=== PATIENT | male | born 1960 | race Caucasian/White ===

== ENCOUNTER 2020-05-21 16:35 | Outpatient (REF) | payer BC, SELFPAY ==
[2020-05-21 19:30] LABS: Anion Gap 11.1 mmol/L (3-11); BUN 14 mg/dL (7-18); CO2 25.9 mmol/L (21.0-32.0); CREATININE 1.06 mg/dL (0.70-1.30); Calcium 9.3 mg/dL (8.5-10.1); Calculated LDL 160 mg/dL (<100); Chloride 102 mmol/L (98-107); Cholesterol 244 mg/dL (<200); Glucose 85 mg/dL (74-106); HDL Cholesterol 44 mg/dL (40-60); Sodium 139 mmol/L (136-145); Triglyceride 203 mg/dL (<150)
[2020-05-22 18:54] LABS: PSA, Screening 0.3 ng/mL (0.0-4.5)
== END 2020-05-21 16:55 ==
LOC: LBN 16:35
PROVIDERS: Nurse Practitioner Gerontology; PCP Emergency Medicine; Visit Provider Emergency Medicine
DX: R03.0 Elevated blood-pressure reading, without diagnosis of hypertension (principal); I10 Essential (primary) hypertension; N40.1 Benign prostatic hyperplasia with lower urinary tract symptoms; N13.8 Other obstructive and reflux uropathy
CPT/HCPCS: 80048; 80061; 84153

== ENCOUNTER 2020-11-06 01:55 | Outpatient (CLI) | payer BC, SELFPAY ==
[2020-11-07 17:31] LABS: COVID-19 RT-PCR UVMMC Result Negative (Negative)
== END 2020-11-06 01:56 | disposition home or self-care (01) ==
LOC: LBO 01:55
PROVIDERS: PCP Emergency Medicine; Visit Provider Emergency Medicine
DX: Z20.822 Contact with and (suspected) exposure to COVID-19 (principal)
CPT/HCPCS: U0003

== ENCOUNTER 2022-01-22 10:24 | Day surgery (SDC) | payer OTHER, SELFPAY ==
[2022-01-22] VITALS (7 sets, daily range): BP systolic 109–151; BP diastolic 71–103; PULSE 65–84; RESP 12–20; TEMP 36–36.2; TEMPC 36.6; O2SAT 96–100; BMI 28.3
[2022-01-22] MEDS: Lactated Ringers 1,000 ML 80 ML IV (11:00)
--- NOTE | 2022-01-22 11:20 | W.ANESPRE ---
General Info Date of Service Date Performed: 01/22/22 Height: 5 ft 9 in Weight: 87 kg Body Mass Index (BMI): 28.3 Surgical Procedure: Operation Date: 01/22/22 10:35 Proposed Procedure Side Surgeon p Mimi Dukes, Meds Allergies and Home Medications Allergies Allergy/AdvReac Type Severity Reaction Status Date / Time No Known Allergies Allergy Unverified 01/22/22 10:48 Home Medication Medication Instructions Recorded glucosamine sulfate 2KCl 1,000 mg 1,000 mg PO BID 01/08/22 tablet (Glucosamine Relief) multivitamin 1 tab PO DAILY 01/08/22 omega 5-xcw-hfw-fish oil 300 1 cap PO DAILY 01/08/22 mg-1,000 mg capsule (Fish Oil) Current Visit Medications: Current Medications Generic Name Dose Route Start Last Admin Trade Name Freq PRN Reason Stop Dose Admin Hyoscyamine Sulfate 0.125 mg 01/21/22 09:37 Hyoscyamine 0.125 Mg Sl/Oral/Chew SL DIRECTED PRN Ringer's Solution 1,000 mls @ 80 mls/hr 01/22/22 06:00 01/22/22 11:00 IV 02/20/22 23:59 80 mls/hr INFUSION JUDIE Administration IV Miscellaneous Supplies 1 each 01/22/22 06:00 Iv Access IV 02/20/22 23:59 DIRECTED JUDIE Ondansetron HCl 4 mg 01/21/22 09:37 Ondansetron 4 Mg/2 Ml Vial IVP Q4H PRN PRN Nausea / Vomiting Sodium Chloride 0 ml 01/22/22 06:00 Normal Saline Flush 10 Ml Syr IV 02/20/22 23:59 PRN PRN Sodium Chloride 0 ml 01/22/22 06:00 Normal Saline 10 Ml Vial IJ 02/20/22 23:59 DIRECTED PRN Sterile Water 0 ml 01/22/22 06:00 Water,Injection,Sterile 10 Ml Vial IJ 02/20/22 23:59 DIRECTED PRN PFSH Active Problems Active Problems: Problem Status Onset Code Screening for colon cancer Z12.11 Medical History Medical History Achilles tendinitis Actinic keratitis Ankle injury Anxiety BPH w urinary obs/LUTS Depressive disorder Elevated blood pressure reading Esophageal reflux History of leukemia 1968 Hyperlipidemia Medical History Comments:: Pt very anxious. felt light headed whenhaving IV Surgical History Surgical History Colonoscopy - IV Sedation 2010 2011 Tobacco Smoking/Tobacco Use Status: Never Passive smoking exposure: Yes Second hand exposure: Yes Alcohol Alcohol Intake: current Alcohol intake frequency: a few times a week Alcohol type: beer and wine Substance Use Substance use: Never Substance use type: does not use Vital Signs and Lab Results Vital Signs Most Recent Vital Signs in EMR: Most Recent Vital Signs Temp Pulse Resp BP Pulse Ox 36 C L 66 20 114/71 100 01/22/22 11:04 01/22/22 11:04 01/22/22 11:04 01/22/22 11:04 01/22/22 11:04 Lab Results Blood Type / Crossmatch: No Data to Display Complete Blood Count: No Data to Display Complete Metabolic Panel: No Data to Display Liver Function Panel: No Data to Display Coagulation Panel: No Data to Display Cardiac Panel: No Data to Display Arterial Blood Gas: No Data to Display Venous Blood Gas: No Data to Display Pancreas Panel: No Data to Display Thyroid Panel: No Data to Display Infectious Disease: No Data to Display Blood Cultures: No Data to Display Toxicology Panel: No Data to Display Anesthesia Assessment and Plan Anesthesia History Personal History: No History of Anesthesia Complications Family History: No Family History of Anesthesia Complications Exercise Tolerance Exercise Tolerance: Metabolic Equivalents>4 Pertinent Negatives Pertinent Negatives: No Symptoms of GERD, No Major Cardiovascular Symptoms or Complaints, No Major Pulmonary Symptoms or Complaints and No History of CVA/TIA Cardiac & Pulmonary Exam Cardiac Exam: Normal S1/S2 Heart Sounds Pulmonary Exam: Clear Bilateral Breath Sounds Implantable Cardiac Device Does patient have a Pacemaker or an ICD?: No Airway Exam Known Difficult Airway: No Mallampati Class: 1 Mouth Opening: Normal (> 3cm) Thyromental Distance: Greater than 3 cm Neck Range of Motion: Full ROM Neck Circumference: Normal Teeth Condition: Normal Dentition ASA Classification ASA Score: ASA 2 Emergency Case?: No NPO Status NPO Status: NPO Clears >2 hours, Solids >8 hours Anesthesia Plan Resuscitation Status: Full Code Anesthesia Technique: General Anesthesia Airway Planned: Natural Airway Monitors Used: Standard Monitors
[2022-01-22] MEDS: Endoscopic Tattoo 5 ML SYR IJ (11:43)
--- NOTE | 2022-01-22 11:47 | BOWEL_PTH ---
PATIENT: Shalom Ball LOC: [facility] U#:[id number] AGE/SX: 61/M ROOM: RE01/22/[address]: Merced Dukes : 1960 BED: DIS: 01/22/2022 SPEC #: [id number] RECD: 01/22/22 12:58 STATUS: SARAH REQ #: [id number] JUANJO: 01/22/22 11:[address]: Merced Dukes DEPT: Surgical Specimen RECD BY: Karley Ortiz ENTERED: 01/22/22 12:59 SP TYPE: Bowel OTHR DR: Nhi Theodore APRN Tissues: 1 - BIOPSY BOWEL Procedures: GROSS AND MICRO LEVEL 4 Comments: [id number]
--- NOTE | 2022-01-22 12:15 | W.ANESPOSTOP ---
Postoperative Evaluation Date, Time and Location Date Performed: 01/22/22 Time Performed: 12:16 Patient Location: Day Surgery Unit Vital Signs Most Recent Imported Vital Signs: Most Recent Vital Signs Temp Pulse Resp BP Pulse Ox 36 C L 67 16 151/97 H 100 01/22/22 11:04 01/22/22 11:27 01/22/22 11:27 01/22/22 11:27 01/22/22 11:18 Most Recent Manually Entered Vital Signs: Adult Blood Pressure: 109/80 Heart Rate: 80 Respirations: 12 Oxygen Saturation (%): 97 Temperature (C): 36.6 C Pain Score (0-10 Scale): 0 Pain Score Most Recent Pain Score: Most Recent Pain Score Pain Level 0 01/22/22 10:49 Assessment Mental Status: Awake (Alert & Oriented to Patient Baseline) Airway and Respiratory Function: Patent airway with normal (patient baseline) respiratory exam Cardiovascular Function: Hemodynamically Stable Hydration Status: Adequately Hydrated Nausea & Vomiting: No Nausea or Vomiting Pain: Pt. Denies Any Pain Peripheral Nerve Block: Patient did not receive a nerve block
--- NOTE | 2022-01-22 12:17 | PDOC.DSDIS_ITS ---
Discharge Plan Disposition Patient Disposition: HOME Condition: Good Discharge Details Reason For Visit: colon scope Attending Provider: Merced Dukes Primary Care Provider: Nhi Theodore Home Meds and New Rx's Prescriptions: No Action multivitamin Tablet 1 tab PO DAILY glucosamine sulfate 2KCl [Glucosamine Relief] 1,000 mg tablet 1,000 mg PO BID Rx Instructions: administer with meals omega 1-dnt-fce-fish oil [Fish Oil] 300-1,000 mg capsule 1 cap PO DAILY Discharge Instructions Additional Instructions: DSU Colonoscopy Post- Op Instructions Instructions for Everyone who is given Anesthes ia: For your safety, please do the following for the next twenty-four (24) hours: *Do Not operate a motor vehicle (car, truck, motorcycle, etc.) *Do Not drink alcoholic beverages or use any recreational drugs for the first 24 hours or while taking pain medications. The medications in your body may have a reaction that can be dangerous. *Do Not make any important decisions or sign any important papers. Findings: polyp x1 Follow up: -My office will send a letter in 2 to 3 weeks time detailing as to what type of polyp this was and when we want you to repeat the colonoscopy. 1. No lifting over 20 pounds or strenuous activity for the first 24 hours after your procedure. After 24 hours there are no restrictions on your activity but you may feel fatigued for a few days. 2. After you arrive home you may have a light meal and return to your normal diet as you can tolerate it without feeling sick to your stomach. 3. You may have a bloated, gaseous feeling in your belly (abdomen) after a colonoscopy. Passing gas and belching will help. Walking or lying down on your left side with your knees flexed may relieve the discomfort. Call the office at [phone] (Office) or [phone] (Hospital) right away if you notice any of the following: a.Vomiting of blood or ?coffee ground stools?. b.Rectal bleeding 1Tbsp, blood clots or continuous bleeding. c.Severe belly (abdominal) pain. d.A hard distended belly (abdomen) and an inability to pass gas. 4. Please don?t expect to have a normal BM (bowel movement) for 2-3 days after your procedure. 5. If there are questions regarding the findings of your procedure, please contact your doctor 6. If you are unable to contact your doctor with a problem, contact the hospital at [phone]. 7. Continue all your regular medications unless directed otherwise. I understand the above instructions and have no questions. Signature of Patient or Adult Escort Name of Responsible Adult Escort Signature of Nurse Date/Time Activity:: See above Diet:: As Tolerated Discharge Orders Discharge Orders: Discharge Order (Routine); Ordered 01/21/22 Ordered By: Merced Dukes DS: Diagnosis Discharge Diagnosis (1) Cecal polyp: Status: Acute
--- NOTE | 2022-01-22 12:19 | COLE_ITS ---
Colonoscopy Report Date of procedure: 01/22/22 Pre-op diagnosis general: CRC screening Post-op diagnosis procedure note: other (colon polyp) Surgeon: Merced Dukes Anesthesia Type: General:No Airway Estimated blood loss (mL): 1 Pathology: other Complications: None Disposition: same day Prep: Miralax/Dulcolax Retraction Time: 13 Procedure Description: After informed consent was obtained the patient was taken to the procedure room and placed in a left decubitous position. Monitors were applied and a time out was done. The patients name, date of , procedure, allergies to medications and metal in their body was reviewed. The patient was then sedated. Once sedat ed and comfortable a rectal exam was done. External exam was normal. Internal exam revealed a normal sphincter tone and no palpable masses. The scope was then introduced and retrofelexed. no internal hemorrhoids were identified. The scope was then advanced to the cecum w/out difficulty. The TI and appendiceal orifice were identified. The prep was BB PS 3 in all segments for a total of 9. The scope was then slowly retracted over 13 minutes back into the rectum. There was a 2 cm flat polyp in the cecum. This was identified under NBI. This area was tattooed partially just to elevate the mucosa. There is removed with multiple bites of a hot biopsy forcep. All specimen is retrieved and no bleeding is noted.. The scope was removed and the patient was woken up and taken back to Same day surgery in stable condition. The patient tolerated the procedure well and there were no immediate complications. Follow up: The patient should have a repeat CE, to be determined by pathologic findings, unless they develop changes in bowel habits or other new gastrointestinal complaints.
== END 2022-01-22 13:14 | disposition home or self-care (01) ==
PROVIDERS: Visit Provider Surgery
PROC: 0DJD8ZZ Inspection of Lower Intestinal Tract, Via Natural or Artificial Opening Endoscopic (ICD-10-PCS; CPT 45378; principal; 2022-01-22 10:30)
DX: Z12.11 Encounter for screening for malignant neoplasm of colon (principal); K63.5 Polyp of colon
CPT/HCPCS: 45384; 45381; 88305; J2250

== ENCOUNTER 2022-07-07 10:32 | Outpatient (CLI) | payer OTHER, SELFPAY ==
[2022-07-07 12:27] LABS: CREATININE 1.2 mg/dL (0.70-1.30); Estimated GFR 68.38 (mL/min/1.73m2)
== END 2022-07-07 10:33 | disposition home or self-care (01) ==
LOC: LOS 10:32
PROVIDERS: PCP Nurse Practitioner Family; Visit Provider Family Medicine
DX: I10 Essential (primary) hypertension (principal)
CPT/HCPCS: 36415; 82565

== ENCOUNTER 2022-07-16 11:44 | Outpatient (CLI) | payer OTHER, SELFPAY ==
--- NOTE | 2022-07-16 11:30 | RT.EKG_ITS ---
APPROVED REPORT Exam: Resting ECG Reason for Exam: irregular heart rate Patient Location: O HR:78 bpm ECG Measurements Heart Rate 78 AXIS ME 173 P 62 QRSd 104 QRS 10 QT 433 T 26 QTc 494 Conclusion Sinus rhythm...normal P axis, V-rate 50- 99 Ventricular bigeminy...bigeminy string>4 w/ V complexes Borderline low voltage, extremity leads...all extremity leads <0.6mV Borderline prolonged QT interval...QTc >475mS
== END 2022-07-16 11:45 | disposition home or self-care (01) ==
LOC: DI.CM 11:45
PROVIDERS: PCP Nurse Practitioner Family; Visit Provider Nurse Practitioner Family
DX: I49.9 Cardiac arrhythmia, unspecified (principal)
CPT/HCPCS: 93010

== ENCOUNTER 2023-02-25 18:49 | Outpatient (REF) | payer OTHER, SELFPAY ==
[2023-02-25 21:15] LABS: Calculated LDL 122 mg/dL (<100); Cholesterol 219 mg/dL (<200); HDL Cholesterol 37 mg/dL (40-60); Triglyceride 301 mg/dL (<150)
== END 2023-02-25 18:50 | disposition home or self-care (01) ==
LOC: LBN 18:49
PROVIDERS: PCP Nurse Practitioner Family; Visit Provider Nurse Practitioner Family
DX: E78.5 Hyperlipidemia, unspecified (principal)
CPT/HCPCS: 80061

== ENCOUNTER 2023-03-04 00:37 | Outpatient (CLI) | payer OTHER, SELFPAY ==
--- NOTE | 2023-03-04 09:46 | DI.RAD_ITS ---
Exam(s) XR ANKLE RT COMPLETE EXAM: XR ANKLE RT COMPLETE CLINICAL HISTORY: continued pain, INJURY, S99.893H. TECHNIQUE: 2D digital imaging was performed. Three views. COMPARISON: CR XR ANKLE LT COMPLETE from 03/04/2023 FINDINGS: BONES: No acute fracture is present. Chronic appearing bony densities are noted adjacent to the medi al malleolus likely related to old trauma. There are prominent calcaneal spurs. No bony destructive lesion is seen. JOINTS: The ankle mortise is normally aligned. No significant tibiotalar joint space narrowing. SOFT TISSUE: Normal. Vascular calcifications. IMPRESSION: heel spurs. No acute abnormality DATA REPOSITORY: RADIATION DOSE DELIVERED:
--- NOTE | 2023-03-04 09:46 | DI.RAD_ITS ---
Exam(s) XR FOOT LT COMPLETE EXAM: XR FOOT LT COMPLETE CLINICAL HISTORY: continued pain, INJURY, S99.072U. TECHNIQUE: 2D digital imaging was performed. Three views. COMPARISON: No exams were available for comparison FINDINGS: BONES: No acute fracture is present. No bony destructive lesion is seen. Prominent heel spurs. JOINTS: No dislocation present. Mild intertarsal degenerative changes. Minimal degenerative change s 1st MTP joint. No hallux valgus. SOFT TISSUE: Normal. IMPRESSION: Mild degenerative changes and heel spurs. No acute abnormality. DATA REPOSITORY: RADIATION DOSE DELIVERED:
--- NOTE | 2023-03-04 09:46 | DI.RAD_ITS ---
Exam(s) XR FOOT RT COMPLETE EXAM: XR FOOT RT COMPLETE CLINICAL HISTORY: continued PAIN, INJURY, S99.439A. TECHNIQUE: 2D digital imaging was performed. Three views. COMPARISON: CR XR FOOT LT COMPLETE from 03/04/2023 FINDINGS: BONES: No acute fracture is present. No bony destructive lesion is seen. Prominent heel spurs. JOINTS: No dislocation present. Mild degenerative changes of the 1st MTP joint. SOFT TISSUE: Normal. IMPRESSION: Mild degenerative changes and heel spurs. No acute abnormality. DATA REPOSITORY: RADIATION DOSE DELIVERED:
--- NOTE | 2023-03-04 09:46 | DI.RAD_ITS ---
Exam(s) XR ANKLE LT COMPLETE EXAM: XR ANKLE LT COMPLETE CLINICAL HISTORY: continued pain, INJURY, S99.132J TECHNIQUE: 2D digital imaging was performed. Three views. COMPARISON: No exams were available for comparison FINDINGS: BONES: No acute fracture is present. No bony destructive lesion is seen. Smoothly marginated bony de nsities noted beneath the medial malleolus with slight facet injury to old trauma. Prominent heel sp urs. JOINTS:The ankle mortise is normally aligned. Arm tibiotalar joint space is maintained. SOFT TISSUE: Vascular calcifications. IMPRESSION: Prominent heel spurs. No acute abnormality. DATA REPOSITORY: RADIATION DOSE DELIVERED:
== END 2023-03-04 00:57 ==
LOC: DI 00:37
PROVIDERS: PCP Nurse Practitioner Family; Visit Provider Nurse Practitioner Family
DX: S99.921A Unspecified injury of right foot, initial encounter (principal); M77.31 Calcaneal spur, right foot; M19.071 Primary osteoarthritis, right ankle and foot
CPT/HCPCS: 73610; 73630

== ENCOUNTER 2023-05-24 17:59 | Outpatient (REF) | payer OTHER, SELFPAY ==
[2023-05-24 21:50] LABS: COMMENT (LAB VIEW ONLY) 199.89 mg/dL; Microalb ug/mg Crea 9.9 ug/mg Cr
== END 2023-05-24 18:00 | disposition home or self-care (01) ==
LOC: LBN 17:59
PROVIDERS: PCP Nurse Practitioner Family; Visit Provider Nurse Practitioner Family
DX: I10 Essential (primary) hypertension (principal)
CPT/HCPCS: 82043; 82570

== ENCOUNTER 2023-07-05 02:29 | Outpatient (CLI) | payer OTHER, SELFPAY ==
[2023-07-05 13:21] LABS: ALT 28 U/L (16-63); AST 20 U/L (15-37); Albumin 4.2 g/dL (3.4-5.0); Alkaline Phosphatase 75 U/L (46-116); Anion Gap 8.3 mmol/L (3-11); BUN 18 mg/dL (7-18); Bilirubin, Total 1.7 mg/dL (0.2-1.0); CO2 27.7 mmol/L (21.0-32.0); CREATININE 1.2 mg/dL (0.70-1.30); Calcium 9.5 mg/dL (8.5-10.1); Calculated LDL 82 mg/dL (<100); Chloride 105 mmol/L (98-107); Cholesterol 150 mg/dL (<200); Estimated GFR 67.95 (mL/min/1.73m2); Glucose 97 mg/dL (74-106); HDL Cholesterol 50 mg/dL (40-60); Potassium 4.1 mmol/L (3.5-5.1); Sodium 141 mmol/L (136-145); Total Protein 7.9 g/dL (6.4-8.2); Triglyceride 91 mg/dL (<150)
== END 2023-07-05 02:30 | disposition home or self-care (01) ==
LOC: LOS 02:29
PROVIDERS: PCP Nurse Practitioner Family; Visit Provider Nurse Practitioner Family
DX: E78.5 Hyperlipidemia, unspecified (principal)
CPT/HCPCS: 36415; 80053; 80061

== ENCOUNTER 2023-10-04 04:35 | Outpatient (CLI) | payer OTHER, SELFPAY ==
[2023-10-04 11:05] LABS: ALT 29 U/L (16-63); AST 18 U/L (15-37); Albumin 3.9 g/dL (3.4-5.0); Alkaline Phosphatase 68 U/L (46-116); Anion Gap 10.4 mmol/L (3-11); BUN 17 mg/dL (7-18); Bilirubin, Total 1.5 mg/dL (0.2-1.0); CO2 25.6 mmol/L (21.0-32.0); CREATININE 1.1 mg/dL (0.70-1.30); Calcium 9.4 mg/dL (8.5-10.1); Calculated LDL 87 mg/dL (<100); Chloride 106 mmol/L (98-107); Cholesterol 157 mg/dL (<200); Estimated GFR 75.43 (mL/min/1.73m2); Glucose 98 mg/dL (74-106); HDL Cholesterol 49 mg/dL (40-60); Potassium 4.1 mmol/L (3.5-5.1); Sodium 142 mmol/L (136-145); Total Protein 7.4 g/dL (6.4-8.2); Triglyceride 107 mg/dL (<150)
== END 2023-10-04 04:36 | disposition home or self-care (01) ==
LOC: LOS 04:35
PROVIDERS: PCP Nurse Practitioner Family; Visit Provider Nurse Practitioner Family
DX: E78.5 Hyperlipidemia, unspecified (principal)
CPT/HCPCS: 36415; 80053; 80061

== ENCOUNTER 2024-08-21 15:17 | Outpatient (CLI) | payer OTHER, SELFPAY ==
--- NOTE | 2024-08-21 15:15 | RT.EKG_ITS ---
APPROVED REPORT Exam: Resting ECG Reason for Exam: Left arm pain and dyspnea with exertion Patient Location: O HR:78 bpm ECG Measurements Heart Rate 78 AXIS WY 185 P 44 QRSd 95 QRS 13 QT 398 T 83 QTc 454 Conclusion Sinus rhythm...normal P axis, V-rate 50- 99 Borderline T wave abnormalities...T/QRS ratio < 1/20 or flat T
== END 2024-08-21 15:18 | disposition home or self-care (01) ==
LOC: DI.CM 15:18
PROVIDERS: PCP Nurse Practitioner Family; Visit Provider Nurse Practitioner Family
DX: R06.09 Other forms of dyspnea (principal); M79.602 Pain in left arm
CPT/HCPCS: 93010

== ENCOUNTER 2024-08-27 04:56 | Inpatient (IN) | payer OTHER, SELFPAY ==
[2024-08-27] VITALS (128 sets, daily range): BP systolic 82–196; BP diastolic 51–112; PULSE 42–101; RESP 6–29; TEMP 36.8–37; O2SAT 94–100
--- NOTE | 2024-08-27 04:45 | RT.EKG_ITS ---
APPROVED REPORT Exam: Resting ECG Reason for Exam: chest pain Patient Location: E HR:87 bpm ECG Measurements Heart Rate 87 AXIS AL 196 P 65 QRSd 88 QRS 20 QT 399 T 92 QTc 476 Conclusion Sinus rhythm...normal P axis, V-rate 60- 99 Nonspecific repol abnormality, lateral leads...ST dep, T neg, I aVL V5 V6 appropriate intervals no ST segment or T wave abnormalities to suggest occlusive AL
[2024-08-27] MEDS: Normal Saline 1,000 ML 1000 ML IV (05:10)
[2024-08-27] MEDS: Aspirin 325 MG TAB PO (05:15)
--- NOTE | 2024-08-27 05:24 | ED.GENADUL_ITS ---
Discharge Plan Disposition Patient Disposition: Admit to [facility] Condition: Serious Discharge Details Clinical Impression: Acute non-ST elevation myocardial infarction (NSTEMI) Primary Care Provider: Logan Heard ED Provider: Christina Mario Home Meds and New Rx's Prescriptions: No Action multivitamin Tablet 1 tab PO DAILY glucosamine sulfate 2KCl [Glucosamine Relief] 1,000 mg tablet 1,000 mg PO BID Rx Instructions: administer with meals omega 6-yrx-ptr-fish oil [Fish Oil] 300-1,000 mg capsule 1 cap PO DAILY atorvastatin 20 mg tablet 20 mg PO QHS Qty: 90 4RF famotidine 20 mg tablet 20 mg PO QHS Qty: 90 4RF nitroglycerin 0.4 mg tablet, sublingual 0.4 mg sublingual Q5M PRN (Reason: chest pain) Qty: 14 0RF Rx Instructions: Take 1 tab at onset of symptoms, repeat every 5 minutes x 3 doses if chest pain persists losartan 25 mg tablet 25 mg PO DAILY Qty: 90 0RF HPI General Mode of arrival: ambulatory . Date/Time Provider Initiated Documentation: 08/27/24 04:57 . Limitations to Documentation: no limitations . Information obtained by: patient, family and old records reviewed (office visit 08/21/24) . HPI Narrative: 63yo M with hx HTN, HLD, presenting for chest pain and shortness of breath. For the past severeal weeks has noted dull substernal chest pressure radiating to his left arm with associated shortness of breath, occurring with exertion. Saw his PCP on 08/21 for this and has stress test scheduled for this morning at 0900. Today at around 0200 woke from sleep with the same sensation; dull, 4/10 chest pressure/tightness with some left arm pain and difficulty breathing. Also feels lightheaded. No palpitations or syncope. Has taking his morning blood pressure medications, otherwise has not taken anything at home for this. Currently reports the pain and difficulty breathing have resolved and are not currently present. No family history of early cardiac disease. He is otherwise in his usual state of health with no fevers, chills, rash, nausea, vomiting, abdominal pain, numbness, weakness, or other concerns. Related Data Home Medications ?Medication ?Instructions ?Recorded ?Confirmed glucosamine sulfate 2KCl 1,000 mg 1,000 mg PO BID 01/08/22 08/27/24 tablet (Glucosamine Relief) multivitamin 1 tab PO DAILY 01/08/22 08/27/24 omega 9-tbs-naf-fish oil 300 1 cap PO DAILY 01/08/22 08/27/24 mg-1,000 mg capsule (Fish Oil) atorvastatin 20 mg tablet 20 mg PO QHS #90 tabs 10/11/23 08/27/24 losartan 25 mg tablet 25 mg PO DAILY #90 tabs 05/07/24 08/27/24 famotidine 20 mg tablet 20 mg PO QHS #90 tabs 06/05/24 08/27/24 nitroglycerin 0.4 mg sublingual 0.4 mg sublingual Q5M PRN chest 08/21/24 08/27/24 tablet pain #14 tabs Previous Rx's ?Medication ?Instructions ?Recorded atorvastatin 20 mg tablet 20 mg PO QHS #90 tabs 10/11/23 losartan 25 mg tablet 25 mg PO DAILY #90 tabs 05/07/24 famotidine 20 mg tablet 20 mg PO QHS #90 tabs 06/05/24 nitroglycerin 0.4 mg sublingual 0.4 mg sublingual Q5M PRN chest 08/21/24 tablet pain #14 tabs Allergies Allergy/AdvReac Type Severity Reaction Status Date / Time lisinopril AdvReac Intermediate Other (See Verified 08/27/24 05:08 Comment) General Stated Complaint: Chest Pain MANSOOR: 2 Review of Systems Narrative: see HPI Exam Narrative Exam Narrative: General: Alert, in no acute distress. Head: Normocephalic, atraumatic Neck: Trachea midline, ?Neck supple. ENT: ?MMM.? Cardiac: ?RRR, no murmurs appreciated Resp: No respiratory distress. CTAB. Abd: ?Soft, non-distended, nontender : ?No suprapubic tenderness. Extremities: ?No deformities.? No peripheral edema. Neurologic: GCS 15. ? Moves all extremities freely against gravity Course Vital Signs Vital signs: Vital Signs Temperature 37.0 C 08/27/24 05:01 Pulse 82 08/27/24 05:01 Respiratory Rate 16 08/27/24 05:01 Blood Pressure 196/112 H 08/27/24 05:01 Pulse Oximetry 99 08/27/24 05:01 Temperature 37.0 C 08/27/24 05:01 Pulse 82 01/27/25 05:01 Respiratory Rate 17 08/27/24 05:06 Respiratory Effort Normal 08/27/24 05:06 Respiratory Depth Normal 08/27/24 05:06 Respiratory Pattern Normal 08/27/24 05:06 Blood Pressure 196/112 H 08/27/24 05:01 Pulse Oximetry 99 08/27/24 05:01 Oxygen Delivery Method Room Air 08/27/24 05:01 Oxygen Flow Rate 0 08/27/24 05:01 Pain Level 4 08/27/24 05:01 Medical Decision Making Pt arrived during partial meditech downtime; initial orders on paper 63yo M with hx HTN, HLD, presenting for chest pain and shortness of breath. For the past severeal weeks has noted dull substernal chest pressure radiating to his left arm with associated shortness of breath and lightheadedness, occurring with exertion; saw his PCP and has stress test scheduled for 0900 this morning. Woke at 0200 today with the same symptoms for which he now presents to the ED. By arrival pain and shortness of breath have resolved, does still feel somewhat lightheaded. Hypertensive on arrival SBP 190's, vital signs otherwise reassuring. EKG NSR, appropriate intervals, slight ST depressions V5 & V6, no ST segment or T wave abnormalities to suggest occlusive OK. Given 325 of ASA on arrival. Just after IV placed, patient became pale, increasingly lightheaded, and bradyed down to high 30's with BP 80's/50's. Remains alert with a pulse, denies chest pain during this; atropine brought to bedside and 1L IVFB started. Family at bedside report he often passes out with blood draws and patient confirms this; suspect vasovagal reaction. BP and HR rapidly improved to normal range within 2-3 minutes. Labs reviewed as below, CBC reassuring with no leukocytosis or anemia, CMP with no actionable abnormalities, Mg normal, lipase normal, BNP normal, initial troponin elevated at 275. CTA for dissection ordered and independently reviewed; no dissection on my view, radiology read below with no acute findings. Will give 600mg plavix and start heparin. On reassessment pt reports chest pain has returned. BP now 160's/90's; given one dose of SL nitro with complete resolution of chest pain. Repeat EKG with no significant changes. 1 hour troponin slightly uptrending at 293. Discussed with [facility] [place]. Medina; accepted under Dr. Osullivan pending bed availability anticipated later today. Advised starting metoprolol 12.5mg q6hr, keeping pt NPO. Discussed with [facility] hospitalist Dr. Walker; patient accepted to medicine service. He requested bridging orders be placed which was done. Awaiting transfer to the floor. Imaging Data Radiologic Study: Imaging: CT Scan Radiologist's impression: IMPRESSION: No acute findings to explain reported symptoms Lab Data Lab results reviewed: Yes I reviewed the patient's lab results. Labs: Laboratory Tests Range/Units 08/27/24 08/27/24 08/27/24 05:14 06:14 08:14 WBC (4.4-10.8) 10^3/uL 8.23 RBC (4.36-5.78) 10^6/uL 5.71 Hgb (13.5-17.5) g/dL 15.6 Hct (40.0-50.0) % 47.1 MCV (80-95) fL 83 MCH (27.0-33.0) pg 27.3 MCHC (32.0-36.0) % 33.1 RDW (11.8-14.1) % 13.2 Plt Count (130-400) 10^3/uL 202 MPV (8.0-11.0) fL 9.8 Immature Gran % % 0.1 Neutrophils % % 72.8 Lymphocytes % % 20.4 Monocytes % % 6.1 Eosinophils % % 0.2 Basophils % % 0.4 Nucleated RBC % (0.0-0.3) % 0.0 Absolute Neutrophils (1.2-6.7) 10^3/uL 5.99 Absolute Lymphocytes (1.2-3.4) 10^3/uL 1.68 Absolute Monocytes (0.1-0.8) 10^3/uL 0.50 Absolute Eosinophils (0.0-0.7) 10^3/uL 0.02 Absolute Basophils (0.0-0.2) 10^3/uL 0.03 Sodium (136-145) mmol/L 143 Potassium (3.5-5.1) mmol/L 3.5 Chloride (98-107) mmol/L 106 Carbon Dioxide (21.0-32.0) mmol/L 27.4 Anion Gap (3-11) mmol/L 9.6 BUN (7-18) mg/dL 10 Creatinine (0.70-1.30) mg/dL 1.1 Est GFR (CKD-EPI 2020) (mL/min/1.73m2) 74.96 Glucose (74-106) mg/dL 114 H Calcium (8.5-10.1) mg/dL 8.7 Magnesium (1.8-2.4) mg/dL 1.8 Total Bilirubin (0.2-1.0) mg/dL 0.84 AST (15-37) U/L 18 ALT (16-63) U/L 34 Alkaline Phosphatase (46-116) U/L 83 Troponin I (<or=76) ng/L 275 H* Cancelled Cancelled NT-Pro-B Natriuret Pep (<300) pg/mL 206 Total Protein (6.4-8.2) g/dL 7.4 Albumin (3.4-5.0) g/dL 3.9 Lipase (<78) U/L 41 Quality:[facility] Health Related Social Needs: No Data to Display Critical Care Time Critical Care Time Critical Care Time: Yes Total Critical Care Time: 32 Attestation: Due to a high probability of clinically significant, life threatening deterioration, the patient required my highest level of preparedness to intervene emergently and I personally spent this critical care time directly and personally managing the patient. This critical care time included obtaining a history; examining the patient; pulse oximetry; ordering and review of studies; arranging urgent treatment with development of a management plan; evaluation of patient's response to treatment; frequent reassessment; and, discussions with other providers. This critical care time was performed to assess and manage the high probability of imminent, life-threatening deterioration that could result in multi-organ failure. It was exclusive of separately billable procedures and treating other patients? PFSH All Active Problems (Updated 08/27/24 @ 06:57 by Christina Mario MD) Acute non-ST elevation myocardial infarction (NSTEMI) (Acute) Left arm pain (Acute) Dyspnea on exertion (Acute) Snoring (Acute) Hypertension (Chronic) Pain, joint, foot, right (Acute) Bilateral ankle joint pain (Acute) Ankle joint stiffness, bilateral (Acute) Hyperlipidemia (Acute) GERD without esophagitis (Acute) Rosacea (Acute) Leukemia (Chronic) remote Cecal polyp (Acute) 12/2021 serrated adenoma, due in 2026- Medical History History of leukemia 1968 Hyperlipidemia Esophageal reflux Depressive disorder Anxiety Achilles tendinitis Actinic keratitis BPH w urinary obs/LUTS Elevated blood pressure reading Ankle injury Surgical History History of colonoscopy (~12/2021) Colonoscopy - IV Sedation 2010 2011 Family History Mother Stroke Father , 53 Alcohol abuse Personal history of malignant neoplasm throat Brother , 57 Depression Stroke Hypertension Grandfather Stroke Grandmother Diabetes Son No problems noted. Son No problems noted. Social History (Updated 06/05/24 @ 10:12 by Radha Jackson) Smoking/Tobacco Use Status: Never Second Hand Exposure: Yes Smoking risk assessment performed?: Yes Alcohol Intake: current Alcohol Intake frequency: a few times a week Alcohol type: beer and wine Drug use: Never Substance use type: does not use Adopted: No Caregiver/Support person: Yes Household members: spouse Housing: house Number of Children: 2 number of grandchildren: 1 Communication Needs: None and Corrective Lenses Do you need help understanding health information?: Rarely Pets and animals: Yes Pets and animals: cat(s) Sexually active: Yes Do you think of yourself as: straight/heterosexual Current gender identity: male What is your relationship status?: How often do you talk on the phone with friends or family?: once per week How often do you get together with friends or relatives?: once per week How often do you attend worship or congregational services?: 1-3 times per year Do you belong to any clubs or organized social groups?: no Panel score (0-1 are the most socially isolated patients): 1 Valery/Moravian: Bahai Special valery needs: No Agree to transfusion: Yes Seatbelt use: always Helmet use: Yes Helmet use: always 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
--- NOTE | 2024-08-27 05:30 | DI.CT_ITS ---
Exam(s) CT THORAX ABD/PEL CTA EXAM: CT THORAX ABD/PEL CTA CLINICAL HISTORY: chest pain eval aortic dissection. TECHNIQUE: Imaging Protocol: Axial CT angiography was performed with multi-slice acquisition and m ulti-planar and/or 3D reconstructions. Lung Computer Aided Detection (CAD) was utilized. CONTRAST MATERIAL: Intravenous: Omnipaque 350 contrast volume:100 mL Oral: No COMPARISON: CT ABD PELVIS WITH CONTRAST from 02/25/2015 FINDINGS: CHEST: Tracheobronchial tree: Patent where visualized. There is no evidence of bronchiectasis. Pulmonary parenchyma: No consolidation or dominant measurable mass. No architectural distortion. Pulmonary Arteries: There is no evidence of a pulmonary embolism. Mediastinum and Regla: No dominant adenopathy or fluid collection. The esophagus is unremarkable. Visualized thyroid: Unremarkable. Pleura: No effusion or pneumothorax. Heart: The heart is not dilated. Coronary artery calcification is present. No pericardial effusion. Aorta: Thoracic aorta non-dilated. No evidence of aneurysm or dissection. Soft Tissues: Unremarkable. Bones: Within normal limits for the patient's age. ABDOMEN AND PELVIS: Abdomen: Celiac axis/mesenteric arteries: No evidence of occlusion or significant stenosis. Renal Arteries: No evidence of occlusion or significant stenosis. Aorta: No evidence of occlusion or significant stenosis. No aneurysm or dissection. Atheroscleroti c calcification is present. Pelvis: Iliac Arteries: No evidence of occlusion or significant stenosis. Atherosclerotic calcification is present. Common Femoral Arteries: No evidence of occlusion or significant stenosis. Atherosclerotic calcific ation is present. ABDOMEN: Liver: Normal density. No measurable mass. Portal, superior mesenteric and splenic veins: Gallbladder and Biliary Tract: No radiodense calculus or dilation. Pancreas: Normal density, no abnormal calcifications or inflammatory process. Spleen: Normal. Adrenals: No masses seen. Kidneys: Normal size, contour and axis. No radiodense stones or obstructive uropathy. There is a simp le cyst in the superior pole of the left kidney. It measures 1.2 cm. There are several tiny hypoden sities in the kidneys bilaterally which are too small for further characterization but likely reflect small cysts. No follow-up is recommended. Bowel: No obstruction or bowel wall thickening. Appendix is unremarkable. Peritoneal Cavity: No ascites, collection or mesenteric inflammatory response. No free air. Lymph Nodes: Within normal limits. Bones: Within normal limits for the patient's age. Soft Tissues: Unremarkable. PELVIS: Bladder: Symmetric distention, no gross wall thickening. Reproductive Organs: The prostate gland is mildly enlarged. Lymph Nodes: Within normal limits. Bones: Within normal limits for the patient's age. IMPRESSION: 1. No evidence of aneurysm or dissection is seen on the CT angiography of the chest, abdomen or pelvi s. 2. No acute abdominal or pelvic process. 3. No acute pulmonary process. RADIATION DOSE DELIVERED: 832.28mGy.cm Total DLP DATA REPOSITORY: All CT scans at this facility are submitted to the National Radiology Data Registry (NRDR) Dose Index Registry (DIR) with the [employer] (ACR). RADIATION OPTIMIZATION: All CT scans at this facility use at least one of these dose optimization te chniques: automated exposure control; mA and/or kV adjustment per patient size (includes targeted exa ms where dose is matched to clinical indication); or iterative reconstruction.
--- NOTE | 2024-08-27 05:32 | NUR.NOTE ---
0506: While this RN was initiating the L AC PIV pt became very anxious, the subsequently pale and diaphoretic. This RN dropped his HOB flat and observed that he had HR drop into a sinus bradycardia w/ lowest observed HR of 37bpm and hypotensive w/ SBP <85mmHg. MD Mario at bedside and aware. Condition resolved spontaneously within ~7minutes
[2024-08-27] MEDS: Omnipaque 350 MG/ML 100 ML BTL IJ (05:54)
[2024-08-27] MEDS: Normal Saline - Diluent 50 ML VIAL IJ (05:54)
[2024-08-27 05:56] LABS: ALT 34 U/L (16-63); AST 18 U/L (15-37); Abs Immature Grans 0.01 10^3/uL (0.0-0.06); Absolute Basophil Count 0.03 10^3/uL (0.0-0.2); Absolute Eosinophil Count 0.02 10^3/uL (0.0-0.7); Absolute Lymphocyte Count 1.68 10^3/uL (1.2-3.4); Absolute Neutrophil Count 5.99 10^3/uL (1.2-6.7); Albumin 3.9 g/dL (3.4-5.0); Alkaline Phosphatase 83 U/L (46-116); Anion Gap 9.6 mmol/L (3-11); BUN 10 mg/dL (7-18); Basophils % 0.4 %; Bilirubin, Total 0.84 mg/dL (0.2-1.0); CO2 27.4 mmol/L (21.0-32.0); CREATININE 1.1 mg/dL (0.70-1.30); Calcium 8.7 mg/dL (8.5-10.1); Chloride 106 mmol/L (98-107); Eosinophils % 0.2 %; Estimated GFR 74.96 (mL/min/1.73m2); Glucose 114 mg/dL (74-106); HCT 47.1 % (40.0-50.0); HGB 15.6 g/dL (13.5-17.5); Immature Grans % 0.1 %; Lymphocytes % 20.4 %; MCH 27.3 pg (27.0-33.0); MCHC 33.1 % (32.0-36.0); MCV 83 fL (80-95); MPV 9.8 fL (8.0-11.0); Magnesium 1.8 mg/dL (1.8-2.4); Monocytes % 6.1 %; NT-proBNP 206 pg/mL (<300); Neutrophils % 72.8 %; Platelet Count 202 10^3/uL (130-400); Potassium 3.5 mmol/L (3.5-5.1); RBC 5.71 10^6/uL (4.36-5.78); RDW 13.2 % (11.8-14.1); RDW-SD 39.1 fL; Sodium 143 mmol/L (136-145); Total Protein 7.4 g/dL (6.4-8.2); WBC 8.23 10^3/uL (4.4-10.8)
[2024-08-27 05:59] LABS: Troponin I 275 ng/L (<or=76)
[2024-08-27] MEDS: nitroGLYcerin 0.4 MG TAB SL (06:07)
[2024-08-27 06:12] LABS: Lipase 41 U/L (<78)
--- NOTE | 2024-08-27 06:15 | RT.EKG_ITS ---
APPROVED REPORT Exam: Resting ECG Reason for Exam: chest pain Patient Location: E HR:71 bpm ECG Measurements Heart Rate 71 AXIS AR 181 P 56 QRSd 89 QRS 11 QT 439 T 97 QTc 477 Conclusion Sinus rhythm...normal P axis, V-rate 60- 99 Nonspecific T abnormalities, lateral leads...T <-0.10mV, I aVL V5 V6 no ST segment or T wave abnormalities to suggest occlusive PA
--- NOTE | 2024-08-27 06:16 | DI.VRAD_ITS ---
PROCEDURE INFORMATION: Exam: CTA Chest With Contrast CTA Abdomen and Pelvis With Contrast Exam date and time: 08/27/2024 5:44 AM Age: 63 years old Clinical indication: Chest pressure; Other: Chest pain eval aortic dissection TECHNIQUE: Imaging protocol: Computed tomographic angiography of the chest with contrast. Exam focused on the arteries. Computed tomographic angiography of the abdomen and pelvis with contrast. Exam focused on the arteries. 3D rendering (Not supervised by radiologist): MIP and/or 3D reconstructed images were created by the technologist. Contrast material: OMNIPAQUE 350; Contrast volume: 100 ml; Contrast route: INTRAVENOUS (IV); COMPARISON: No relevant prior studies available. FINDINGS: Limitations: Mild motion artifact. VASCULATURE: Pulmonary arteries: No pulmonary embolus is appreciated. Aorta: No aortic aneurysm or dissection seen. Atherosclerotic changes in the aorta and its branches. Celiac trunk and mesenteric arteries: No occlusion or significant stenosis. Renal arteries: No occlusion or significant stenosis. Right iliac arteries: No occlusion or significant stenosis. Left iliac arteries: No occlusion or significant stenosis. CHEST: Lungs: Dependent changes are present in the lungs. Pleural spaces: No pleural effusion. Heart: No pericardial effusion. ABDOMEN AND PELVIS: Liver: No focal hepatic lesion seen. Gallbladder and biliary ducts: No gallbladder calculi seen. Pancreas: No evidence for acute pancreatitis. Spleen: No splenomegaly. Adrenal glands: Unremarkable. No mass. Kidneys and ureters: No hydronephrosis. Right renal cyst. Stomach and bowel: No evidence for intestinal obstruction or perforation. Appendix: No evidence of appendicitis. Intraperitoneal space: No free air. Urinary bladder: No wall thickening. Reproductive: Enlarged prostate with calcifications. Lymph nodes: Nonspecific mesenteric lymph nodes. Bones/joints: No acute fracture. Soft tissues: Unremarkable. IMPRESSION: No acute findings to explain reported symptoms. Dictated and Authenticated by: Joanne Power MD. Ordering:NAVYA Vasquez MD
[2024-08-27] MEDS: Clopidogrel 300 MG TAB 600 MG PO (06:22)
[2024-08-27] MEDS: Heparin in 0.45% NaCl 25,000 UNIT/250 ML BAG 10 UNIT IVINF (06:25)
[2024-08-27 06:36] LABS: Troponin I 293 ng/L (<or=76)
[2024-08-27] MEDS: Metoprolol 12.5 MG TAB PO (06:59)
[2024-08-27 07:11] LABS: PTT Activated 25.5 sec (20.6-30.2); Prothrombin Time 10.4 sec (9.1-11.1)
--- NOTE | 2024-08-27 08:15 | W.PC.ACHO ---
Registration Status: Primary Language: Preferred Language: ED Information & Data Chief Complaint Chest Pain 08/27/24 05:28 Triage Note Pt presents to ER from home 08/27/24 05:01 via POV, ambulatory, with c/ o being woke up with CP at 0230 this morning with mild SOB; reports 710 at that time with radiation to the left shoulder; he says 4/10 with discomfort to left shoulder still; mid-sternal in nature, described as a pressure; denies SOB/N/V or diaphoresis at this time; reports that he is suppose to have a stress test here today. Medical / Surgical History (Last Reviewed 06/05/24 @ 08:57 by Logan Tam NP) History of leukemia Hyperlipidemia Esophageal reflux Depressive disorder Anxiety Achilles tendinitis Actinic keratitis BPH w urinary obs/LUTS Elevated blood pressure reading Ankle injury (Last Reviewed 06/05/24 @ 08:57 by Logan Tam NP) History of colonoscopy (~12/2021) Colonoscopy - IV Sedation Most Recent Vital Signs Temperature 37.0 C 08/27/24 05:01 Pulse 69 08/27/24 06:31 Pulse 70 08/27/24 06:31 Respiratory Rate 14 08/27/24 06:31 Respiratory Effort Normal 08/27/24 05:06 Respiratory Depth Normal 08/27/24 05:06 Respiratory Pattern Normal 08/27/24 05:06 Blood Pressure 137/81 08/27/24 06:31 Blood Pressure Mean 100 08/27/24 06:31 Pulse Oximetry 99 08/27/24 06:31 Oxygen Delivery Method Room Air 08/27/24 05:33 Oxygen Flow Rate 0 08/27/24 05:33 Pain Level 7 08/27/24 06:07 Allergies lisinopril Adverse Reaction (Intermediate, Verified 08/27/24 05:08) Other (See Comment) cough Precautions Isolation Standard precaution 08/27/24 05:06 Active Medications Generic Name Dose Route Start Last Admin Trade Name Freq PRN Reason Stop Dose Admin Heparin Sodium/Sodium Chloride 25,000 unit in 250 mls @ 0 mls/hr 08/27/24 06:00 08/27/24 06:25 IVINF 10 mls/hr INFUSION JUDIE 10 mls/hr Administration Protocol Per Protocol Iohexol 100 ml 08/27/24 06:00 08/27/24 05:54 Omnipaque 350 Mg/Ml 100 Ml Btl IJ 09/26/24 23:59 100 ml DIRECTED JUDIE Administration Sodium Chloride 50 ml 08/27/24 06:00 08/27/24 05:54 Normal Saline - Diluent 50 Ml Vial IJ 50 ml .FOR DI USE JUDIE Administration IV IV Catheter Type [Left Hand] Peripheral IV IV Catheter Type [Right Saline Lock Antecubital] IV Catheter Gauge [Left Hand] 18 IV Catheter Gauge [Right 18 Antecubital] Diet Orders Category Date Time Status Nothing Per Oral [DIET] Nutrition 08/27/24 Breakfast Active Diagnostics 08/27/24 08/27/24 08/27/24 Range/Units 08:14 08:07 06:14 WBC (4.4-10.8) 10^3/uL RBC (4.36-5.78) 10^6/uL Hgb (13.5-17.5) g/dL Hct (40.0-50.0) % MCV (80-95) fL MCH (27.0-33.0) pg MCHC (32.0-36.0) % RDW (11.8-14.1) % Plt Count (130-400) 10^3/uL MPV (8.0-11.0) fL Immature Gran % % Neutrophils % % Lymphocytes % % Monocytes % % Eosinophils % % Basophils % % Nucleated RBC % (0.0-0.3) % Absolute Neutrophils (1.2-6.7) 10^3/uL Absolute Lymphocytes (1.2-3.4) 10^3/uL Absolute Monocytes (0.1-0.8) 10^3/uL Absolute Eosinophils (0.0-0.7) 10^3/uL Absolute Basophils (0.0-0.2) 10^3/uL PT (9.1-11.1) sec INR (0.9-1.1) APTT (20.6-30.2) sec Sodium (136-145) mmol/L Potassium (3.5-5.1) mmol/L Chloride (98-107) mmol/L Carbon Dioxide (21.0-32.0) mmol/L Anion Gap (3-11) mmol/L BUN (7-18) mg/dL Creatinine (0.70-1.30) mg/dL Est GFR (CKD-EPI 2020) (mL/min/1.73m2) Glucose (74-106) mg/dL Calcium (8.5-10.1) mg/dL Magnesium (1.8-2.4) mg/dL Total Bilirubin (0.2-1.0) mg/dL AST (15-37) U/L ALT (16-63) U/L Alkaline Phosphatase (46-116) U/L Troponin I Cancelled Pending Cancelled (<or=76) ng/L NT-Pro-B Natriuret Pep (<300) pg/mL Total Protein (6.4-8.2) g/dL Albumin (3.4-5.0) g/dL Lipase (<78) U/L 08/27/24 08/27/24 Range/Units 06:10 05:14 WBC 8.23 (4.4-10.8) 10^3/uL RBC 5.71 (4.36-5.78) 10^6/uL Hgb 15.6 (13.5-17.5) g/dL Hct 47.1 (40.0-50.0) % MCV 83 (80-95) fL MCH 27.3 (27.0-33.0) pg MCHC 33.1 (32.0-36.0) % RDW 13.2 (11.8-14.1) % Plt Count 202 (130-400) 10^3/uL MPV 9.8 (8.0-11.0) fL Immature Gran % 0.1 % Neutrophils % 72.8 % Lymphocytes % 20.4 % Monocytes % 6.1 % Eosinophils % 0.2 % Basophils % 0.4 % Nucleated RBC % 0.0 (0.0-0.3) % Absolute Neutrophils 5.99 (1.2-6.7) 10^3/uL Absolute Lymphocytes 1.68 (1.2-3.4) 10^3/uL Absolute Monocytes 0.50 (0.1-0.8) 10^3/uL Absolute Eosinophils 0.02 (0.0-0.7) 10^3/uL Absolute Basophils 0.03 (0.0-0.2) 10^3/uL PT 10.4 (9.1-11.1) sec INR 1.0 (0.9-1.1) APTT 25.5 (20.6-30.2) sec Sodium 143 (136-145) mmol/L Potassium 3.5 (3.5-5.1) mmol/L Chloride 106 (98-107) mmol/L Carbon Dioxide 27.4 (21.0-32.0) mmol/L Anion Gap 9.6 (3-11) mmol/L BUN 10 (7-18) mg/dL Creatinine 1.1 (0.70-1.30) mg/dL Est GFR (CKD-EPI 2020) 74.96 (mL/min/1.73m2) Glucose 114 H (74-106) mg/dL Calcium 8.7 (8.5-10.1) mg/dL Magnesium 1.8 (1.8-2.4) mg/dL Total Bilirubin 0.84 (0.2-1.0) mg/dL AST 18 (15-37) U/L ALT 34 (16-63) U/L Alkaline Phosphatase 83 (46-116) U/L Troponin I 293 H* 275 H* (<or=76) ng/L NT-Pro-B Natriuret Pep 206 (<300) pg/mL Total Protein 7.4 (6.4-8.2) g/dL Albumin 3.9 (3.4-5.0) g/dL Lipase 41 (<78) U/L Intake and Output - 24 Hour Total 08/27/24 04:56 thru 08/27/24 08:09 Intake Total 1000 Output Total 500 Balance 500 Weight 89.358 kg Intake: IV 1000 Output: Urine 500 Falls Risk Assessment History of Falls No History 08/27/24 05:06 Contributing Factors No Factors 08/27/24 05:06 Ambulatory Aids Independent 08/27/24 05:06 Tubes/Lines None 08/27/24 05:06 Gait Evaluation No gait disturbance 08/27/24 05:06 Cognition No cognitive impairment 08/27/24 05:06 Fall Total Score 0 08/27/24 05:06 Level of Risk Standard/Low Risk 08/27/24 05:06 Notes 08/27/24 05:32 Nursing Notes by Tala Stoll 1813: While this RN was initiating the L AC PIV pt became very anxious, the subsequently pale and diaphoretic. This RN dropped his HOB flat and observed that he had HR drop into a sinus bradycardia w/ lowest observed HR of 37bpm and hypotensive w/ SBP <85mmHg. MD Mario at bedside and aware. Condition resolved spontaneously within ~7minutes Initialized on 08/27/24 05:32 - END OF NOTE v v v v v v v v v Sending and/or Receiving Nurses: Please use comment section below to note any information pertinent to the patient hand-off not included above. Information / Comments: Report received from:Rizwana Johnson RN
--- NOTE | 2024-08-27 08:43 | PDOC.CMIN ---
Date of service: 08/27/24 Time of Service: 08:43 Care Management Initial Assmt Initial Assessment Reason for Hospitalization: NSTEMI Functional Status/Living Situation Town of Residence: [place] Employment Status: Employed ([employer]) Medications Medication Management: No Issues/Barriers identified Advance Directives Advance Directives: Do you have an Advance Directive: Y 01/15/22 10:51 AD On File at [facility]: Y 01/15/22 10:51 Date Asked 01/15/22 08/27/24 08:24 AD Date Reviewed 08/27/24 08/27/24 08:24 COLST On File at [facility] COLST Date Scanned Code Status Resuscitation Status Full Code Insurance Coverage/Financial Issues Insurance: [employer] ([facility] only) Care Team Visit Care Team Role Provider Type Logan Tam NP Primary Care Provider NURSE PRACTITIONER Christina Mario MD Emergency Provider [facility] STAFF PHYSICIAN Dontae Walker MD Admit Provider [facility] STAFF PHYSICIAN Attending Provider Discharge Potential Discharge Needs: PCP F/U Appt Anticipated Barriers to Discharge: None Identified Patient/Family Education Needs: Review discharge instructions, discuss Ask Me Three Transportation: Private vehicle Plan: Oscar has been accepted for transfer to [facility] on Dr. Osullivan's service. He is currently awaiting bed availability. Oscar will transport via EMS coordinated by the nursing tapper supervisor and will follow up with the facility's providers and plan of care. CM will follow and continue to assess for discharge needs. Social Determinants of Health Screening Will the Patient Participate in the Screening?: Declined to provide PFSH All Active Problems (Updated 08/27/24 @ 06:57 by Christina Mario MD) Acute non-ST elevation myocardial infarction (NSTEMI) (Acute) Left arm pain (Acute) Dyspnea on exertion (Acute) Snoring (Acute) Hypertension (Chronic) Pain, joint, foot, right (Acute) Bilateral ankle joint pain (Acute) Ankle joint stiffness, bilateral (Acute) Hyperlipidemia (Acute) GERD without esophagitis (Acute) Rosacea (Acute) Leukemia (Chronic) remote Cecal polyp (Acute) 12/2021 serrated adenoma, due in 2026- Medical History History of leukemia 1968 Hyperlipidemia Esophageal reflux Depressive disorder Anxiety Achilles tendinitis Actinic keratitis BPH w urinary obs/LUTS Elevated blood pressure reading Ankle injury Surgical History History of colonoscopy (~12/2021) Colonoscopy - IV Sedation 2010 2011 Family History Mother Stroke Father , 53 Alcohol abuse Personal history of malignant neoplasm throat Brother , 57 Depression Stroke Hypertension Grandfather Stroke Grandmother Diabetes Son No problems noted. Son No problems noted. Social History (Updated 06/05/24 @ 10:12 by Radha Jackson) Smoking/Tobacco Use Status: Never Second Hand Exposure: Yes Smoking risk assessment performed?: Yes Alcohol Intake: current Alcohol Intake frequency: a few times a week Alcohol type: beer and wine Drug use: Never Substance use type: does not use Adopted: No Caregiver/Support person: Yes Household members: spouse Housing: house Number of Children: 2 number of grandchildren: 1 Communication Needs: None and Corrective Lenses Do you need help understanding health information?: Rarely Pets and animals: Yes Pets and animals: cat(s) Sexually active: Yes Do you think of yourself as: straight/heterosexual Current gender identity: male What is your relationship status?: How often do you talk on the phone with friends or family?: once per week How often do you get together with friends or relatives?: once per week How often do you attend buddhism or gnosticist services?: 1-3 times per year Do you belong to any clubs or organized social groups?: no Panel score (0-1 are the most socially isolated patients): 1 Valery/Pentecostal: Yarsanism Special valery needs: No Agree to transfusion: Yes Seatbelt use: always Helmet use: Yes Helmet use: always Drive intox or ride w/intox 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
[2024-08-27 08:58] LABS: Troponin I 756 ng/L (<or=76)
[2024-08-27] MEDS: Multivitamin TAB 1 TAB PO (09:35)
[2024-08-27] MEDS: Glucosamine 500 MG CAP 1000 MG PO ×2 (09:35→19:29)
[2024-08-27] MEDS: Omega-3 Fatty Acids 1000 MG CAP PO (09:35)
[2024-08-27] MEDS: Losartan 25 MG TAB PO (09:35)
[2024-08-27] MEDS: Normal Saline Flush 10 ML SYR IVP ×2 (09:36→19:30)
[2024-08-27 13:09] LABS: Troponin I 1418 ng/L (<or=76)
[2024-08-27 13:38] LABS: PTT Activated 72.3 sec (20.6-30.2)
--- NOTE | 2024-08-27 14:33 | HPE_ITS ---
Date of service: 08/27/24 Time of Service: 14:33 Assessment and Plan Assessment and plan (1) Hyperlipidemia: Status: Acute Assessment and plan: Continue with home meds (2) Hypertension: Status: Chronic Assessment and plan: Continue home meds (3) Acute non-ST elevation myocardial infarction (NSTEMI): Status: Acute Assessment and plan: Awaiting transfer to [facility] for diagnostic/therapeutic. History of Present Illness History of Present Illness Chief Complaint: Chest pain Narrative: This is a 59-year-old gentleman who presents with 3 weeks of worsening dyspnea on exertion and was to have a stress test today. Patient woke up this morning with chest tightness came to the ED for evaluation and was noted to have elevations in his troponins and changes in his EKG. Patient was accepted to [facility] for cardiac cath but is awaiting transfer. Patient was given nitroglycerin as well as heparin and is currently chest pain-free Review of Systems All systems reviewed & are unremarkable except as noted in HPI and below PFSH All Active Problems (Updated 08/27/24 @ 06:57 by Christina Mario MD) Acute non-ST elevation myocardial infarction (NSTEMI) (Acute) Left arm pain (Acute) Dyspnea on exertion (Acute) Snoring (Acute) Hypertension (Chronic) Pain, joint, foot, right (Acute) Bilateral ankle joint pain (Acute) Ankle joint stiffness, bilateral (Acute) Hyperlipidemia (Acute) GERD without esophagitis (Acute) Rosacea (Acute) Leukemia (Chronic) remote Cecal polyp (Acute) 12/2021 serrated adenoma, due in 2026- Medical History History of leukemia 1968 Hyperlipidemia Esophageal reflux Depressive disorder Anxiety Achilles tendinitis Actinic keratitis BPH w urinary obs/LUTS Elevated blood pressure reading Ankle injury Surgical History History of colonoscopy (~12/2021) Colonoscopy - IV Sedation 2010 2011 Family History Mother Stroke Father , 53 Alcohol abuse Personal history of malignant neoplasm throat Brother , 57 Depression Stroke Hypertension Grandfather Stroke Grandmother Diabetes Son No problems noted. Son No problems noted. Social History (Updated 06/05/24 @ 10:12 by Radha Jackson) Smoking/Tobacco Use Status: Never Second Hand Exposure: Yes Smoking risk assessment performed?: Yes Alcohol Intake: current Alcohol Intake frequency: a few times a week Alcohol type: beer and wine Drug use: Never Substance use type: does not use Adopted: No Caregiver/Support person: Yes Household members: spouse Housing: house Number of Children: 2 number of grandchildren: 1 Communication Needs: None and Corrective Lenses Do you need help understanding health information?: Rarely Pets and animals: Yes Pets and animals: cat(s) Sexually active: Yes Do you think of yourself as: straight/heterosexual Current gender identity: male What is your relationship status?: How often do you talk on the phone with friends or family?: once per week How often do you get together with friends or relatives?: once per week How often do you attend denominational or hindu services?: 1-3 times per year Do you belong to any clubs or organized social groups?: no Panel score (0-1 are the most socially isolated patients): 1 Valery/Cheondoism: Samaritan Special valery needs: No Agree to transfusion: Yes Seatbelt use: always Helmet use: Yes Helmet use: always Drive intox or ride w/intox route relief 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 Drive intox or w/intox route relief driver: rarely Working smoke detector in home: Yes Firearms in home: Yes Do you feel safe at home: Yes Do you feel safe in your relationship?: Yes Meds Allergies and Home Medications Allergies Allergy/AdvReac Type Severity Reaction Status Date / Time lisinopril AdvReac Intermediate Other (See Verified 08/27/24 05:08 Comment) Home Medications ?Medication ?Instructions ?Recorded ?Confirmed ?Type glucosamine sulfate 2KCl 1,000 mg 1,000 mg PO BID 01/08/22 08/27/24 History tablet (Glucosamine Relief) multivitamin 1 tab PO DAILY 01/08/22 08/27/24 History omega 7-rek-luq-fish oil 300 1 cap PO DAILY 01/08/22 08/27/24 History mg-1,000 mg capsule (Fish Oil) atorvastatin 20 mg tablet 20 mg PO QHS #90 tabs 10/11/23 08/27/24 Rx losartan 25 mg tablet 25 mg PO DAILY #90 tabs 05/07/24 08/27/24 Rx famotidine 20 mg tablet 20 mg PO QHS #90 tabs 06/05/24 08/27/24 Rx nitroglycerin 0.4 mg sublingual 0.4 mg sublingual Q5M PRN chest 08/21/24 08/27/24 Rx tablet pain #14 tabs Exam Narrative Exam Narrative: HEENT: Normocephalic atraumatic mucous membranes moist oropharynx clear extract motions are intact lungs: Clear to auscultation bilaterally present extremities no accessory muscle use Cardiovascular: Regular rate and rhythm no murmurs gallops Abdomen: Soft nontender nondistended Extremities no sinus clubbing or edema bilaterally Neurologic: Cranial nerves II through XII intact as tested Psych: Alert and oriented x 3 no apparent distress General: 63 gentleman appears his stated age Results Labs 08/27/24 05:14 08/27/24 05:14 Labs: Laboratory Results - last 24 hr 08/27/24 08/27/24 08/27/24 05:14 06:10 06:14 WBC 8.23 RBC 5.71 Hgb 15.6 Hct 47.1 MCV 83 MCH 27.3 MCHC 33.1 RDW 13.2 Plt Count 202 MPV 9.8 Immature Gran % 0.1 Neutrophils % 72.8 Lymphocytes % 20.4 Monocytes % 6.1 Eosinophils % 0.2 Basophils % 0.4 Nucleated RBC % 0.0 Absolute Neutrophils 5.99 Absolute Lymphocytes 1.68 Absolute Monocytes 0.50 Absolute Eosinophils 0.02 Absolute Basophils 0.03 PT 10.4 INR 1.0 APTT 25.5 Sodium 143 Potassium 3.5 Chloride 106 Carbon Dioxide 27.4 Anion Gap 9.6 BUN 10 Creatinine 1.1 Est GFR (CKD-EPI 2020) 74.96 Glucose 114 H Calcium 8.7 Magnesium 1.8 Total Bilirubin 0.84 AST 18 ALT 34 Alkaline Phosphatase 83 Troponin I 275 H* 293 H* Cancelled NT-Pro-B Natriuret Pep 206 Total Protein 7.4 Albumin 3.9 Lipase 41 08/27/24 08/27/24 08/27/24 08:07 08:14 12:17 WBC RBC Hgb Hct MCV MCH MCHC RDW Plt Count MPV Immature Gran % Neutrophils % Lymphocytes % Monocytes % Eosinophils % Basophils % Nucleated RBC % Absolute Neutrophils Absolute Lymphocytes Absolute Monocytes Absolute Eosinophils Absolute Basophils PT INR APTT 72.3 H Sodium Potassium Chloride Carbon Dioxide Anion Gap BUN Creatinine Est GFR (CKD-EPI 2020) Glucose Calcium Magnesium Total Bilirubin AST ALT Alkaline Phosphatase Troponin I 756 H* Cancelled 1418 H* NT-Pro-B Natriuret Pep Total Protein Albumin Lipase Last Vital Signs Temp 36.9 C 08/27/24 12:48 Pulse 63 08/27/24 12:10 Resp 15 08/27/24 12:40 BP 137/72 08/27/24 12:01 Pulse Ox 94 08/27/24 12:10 Time Spent Time spent with Patient: 40-54 minutes Time was spent: preparing to see the patient(eg.review tests), obtaining and/or reviewing separately otained hiistory, ordering medications,tests, procedures, referring, communicating with other health vision care associate, indepentently interpreting results, counseling the patient and care coordination
[2024-08-27 17:36] LABS: Troponin I 1311 ng/L (<or=76)
[2024-08-27] MEDS: Famotidine 20 MG TAB PO (19:29)
[2024-08-27] MEDS: Atorvastatin 20 MG TAB PO (19:30)
[2024-08-27] MEDS: LORazepam 2 MG/ML VIAL 0.5 MG IVP (20:43)
[2024-08-27] MEDS: Lactated Ringers 1,000 ML 80 ML IV (20:43)
[2024-08-28] VITALS (10 sets, daily range): BP systolic 121–147; BP diastolic 80–91; PULSE 56–76; RESP 12–17; TEMP 37–37.4; O2SAT 92–96
[2024-08-28] MEDS: Heparin in 0.45% NaCl 25,000 UNIT/250 ML BAG 10 UNIT IVINF (01:38)
[2024-08-28 06:25] LABS: PTT Activated 65.9 sec (20.6-30.2)
[2024-08-28] MEDS: Multivitamin TAB 1 TAB PO (08:50)
[2024-08-28] MEDS: Normal Saline Flush 10 ML SYR IVP (08:50)
[2024-08-28] MEDS: Losartan 25 MG TAB PO (08:50)
[2024-08-28] MEDS: Omega-3 Fatty Acids 1000 MG CAP PO (08:50)
[2024-08-28] MEDS: Glucosamine 500 MG CAP 1000 MG PO (08:50)
--- NOTE | 2024-08-28 08:57 | INITIAL_ITS ---
Date of service: 08/28/24 Time of Service: 08:57 Care Management Initial Assmt Initial Assessment Reason for Hospitalization: NSTEMI Functional Status/Living Situation Patient Presentation: Oscar was seen at his PCP's office on 08/21/24 with c/o CP and SOB on exertion for a few weeks. He was scheduled for a stress test on 08/27. Oscar was woken from sleep on 08/27 wit chest pressure/tightness and some left arm pain with lightheadedness and difficulty breathing. He came to the ED and was dx as having had an [place]. Oscar was sitting up in the bed when CM met with him today. He looked well, and stated he felt well. Oscar was very pleasant to talk with. He stated he is feeling a little anxiety waiting for his bed at [facility]. He said he was so happy that his pushed him to go to the hospital. He had been putting off his symptoms for too long. He feels like he has a new lease on life and will be changing his eating and exercise habits. He also thinks that he will retire in September, when he turns 64. He wants to enjoy life. Town of Residence: [place] Resides with: Spouse (Jessica. 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) Instrumental Activities of Daily Living (ADLs): Independent Medications Medication Management: No Issues/Barriers identified Advance Directives Advance Directives: Do you have an Advance Directive: Y 01/15/22 10:51 AD On File at [employer]: Y 01/15/22 10:51 Date Asked 01/15/22 08/27/24 08:24 AD Date Reviewed 08/27/24 08/27/24 08:24 COLST On File at [employer] COLST Date Scanned Code Status Resuscitation Status Full Code Insurance Coverage/Financial Issues Insurance: [employer] employee insurance Care Team Visit Care Team Role Provider Type Logan Tam NP Primary Care Provider NURSE PRACTITIONER Christina Mario MD Emergency Provider [employer] STAFF PHYSICIAN Dontae Walker MD Admit Provider [employer] STAFF PHYSICIAN Attending Provider Discharge Potential Discharge Needs: Other (Oscar is being transferred to [facility] for a cardiac cath as soon as a bed is available) Patient/Family Education Needs: Review discharge instructions, discuss Ask Me Three Transportation: EMS (RN concrete block plant supervisor to coordinate) Plan: Oscar has been accepted for transfer at [facility] for a cardiac cath. He will be transferred there when a bed is available. CM will continue to follow. Social Determinants of Health Screening Social Determinants of Health last assessed: 08/28/24 Will the Patient Participate in the Screening?: Yes Do you worry about having a steady place to live?: no Problems where you live: no known problems In the past 12 months, have you had to go without electric, gas, oil or water in your home?: no Have you or anyone in your house had to go without enough food to eat?: no Has lack of transportation kept you from medical appointments or from doing thin gs needed for daily living?: no Has anyone in your life made you feel unsafe or unsupported?: no How hard is it for you to pay for the very basics like food, housing, medical care, and heating? Would you say it is:: Not hard at all Do you want help finding or keeping work or a job?: I do not need or want help If for any reason you need help with day-to-day activities such as bathing, preparing meals, shopping, managing finances, etc., do you get the help you need?: I don?t need any help How often do you feel lonely or isolated from those around you?: Never Do you speak a language other than Pashto at home?: No Does the patient want assistance with any of the above?: No PFSH All Active Problems (Updated 08/27/24 @ 06:57 by Christina Mario MD) Acute non-ST elevation myocardial infarction (NSTEMI) (Acute) Left arm pain (Acute) Dyspnea on exertion (Acute) Snoring (Acute) Hypertension (Chronic) Pain, joint, foot, right (Acute) Bilateral ankle joint pain (Acute) Ankle joint stiffness, bilateral (Acute) Hyperlipidemia (Acute) GERD without esophagitis (Acute) Rosacea (Acute) Leukemia (Chronic) remote Cecal polyp (Acute) 12/2021 serrated adenoma, due in 2026- Medical History History of leukemia 1968 Hyperlipidemia Esophageal reflux Depressive disorder Anxiety Achilles tendinitis Actinic keratitis BPH w urinary obs/LUTS Elevated blood pressure reading Ankle injury Surgical History History of colonoscopy (~12/2021) Colonoscopy - IV Sedation 2010 2011 Family History Mother Stroke Father , 53 Alcohol abuse Personal history of malignant neoplasm throat Brother , 57 Depression Stroke Hypertension Grandfather Stroke Grandmother Diabetes Son No problems noted. Son No problems noted. Social History (Updated 06/05/24 @ 10:12 by Radha Jackson) Smoking/Tobacco Use Status: Never Second Hand Exposure: Yes Smoking risk assessment performed?: Yes Alcohol Intake: current Alcohol Intake frequency: a few times a week Alcohol type: beer and wine Drug use: Never Substance use type: does not use Adopted: No Caregiver/Support person: Yes Household members: spouse Housing: house Number of Children: 2 number of grandchildren: 1 Communication Needs: None and Corrective Lenses Do you need help understanding health information?: Rarely Pets and animals: Yes Pets and animals: cat(s) Sexually active: Yes Do you think of yourself as: straight/heterosexual Current gender identity: male What is your relationship status?: How often do you talk on the phone with friends or family?: once per week How often do you get together with friends or relatives?: once per week How often do you attend yarsani or lutheran services?: 1-3 times per year Do you belong to any clubs or organized social groups?: no Panel score (0-1 are the most socially isolated patients): 1 Valery/Latter-Day: Spiritism Special valery needs: No Agree to transfusion: Yes Seatbelt use: always Helmet use: Yes Helmet use: always Drive intox or ride w/intox 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
[2024-08-28] MEDS: Lactated Ringers 1,000 ML 80 ML IV (09:50)
--- NOTE | 2024-08-28 13:48 | W.PM.DS.N ---
Date of service: 08/28/24 Time of Service: 13:48 DS: Diagnosis Discharge Diagnosis (1) Hyperlipidemia: Status: Acute (2) Hypertension: Status: Chronic (3) Acute non-ST elevation myocardial infarction (NSTEMI): Status: Acute Discharge Plan Disposition Patient Disposition: Transfer-Acute Inpatient Care Specific Acute Inpt Facility: [facility] Condition: Stable Discharge Details Reason For Visit: NSTEMI Admit Date/Time: 08/27/24 07:16 Admit Provider: Dontae Walker Attending Provider: Dontae Walker Primary Care Provider: Logan Heard Hospital Course Hospital Course: This is a pending discharge summary. The patient is a 63-year-old gentleman who presented to the ED with chest pain and workup in the ED was indicative of a STEMI patient was put on nitro as well as heparin. Patient was accepted into [facility] but is awaiting a bed. The idea is that he will be sent today for diagnostic and therapeutic cath. Home Meds and New Rx's Prescriptions: New heparin(porcine) in 0.45% NaCl 25,000 unit/250 mL Parenteral Solution 25,000 unit continuous IV infusion INFUSION Qty: 6000 0RF Continued multivitamin Tablet 1 tab PO DAILY glucosamine sulfate 2KCl [Glucosamine Relief] 1,000 mg tablet 1,000 mg PO BID Rx Instructions: administer with meals omega 5-oyh-aeo-fish oil [Fish Oil] 300-1,000 mg capsule 1 cap PO DAILY atorvastatin 20 mg tablet 20 mg PO QHS Qty: 90 4RF nitroglycerin 0.4 mg tablet, sublingual 0.4 mg sublingual Q5M PRN (Reason: chest pain) Qty: 14 0RF Rx Instructions: Take 1 tab at onset of symptoms, repeat every 5 minutes x 3 doses if chest pain persists losartan 25 mg tablet 25 mg PO DAILY Qty: 90 0RF No Action famotidine 20 mg tablet 20 mg PO QHS Qty: 90 4RF Discharge Instructions Activity:: Activity as Tolerated Equipment/Supplies:: No Equipment Needed Diet:: As Tolerated Discharge Orders Discharge Orders: Discharge Order (Routine); Ordered 08/28/24 Ordered By: Dontae Walker Discharge Data Discharge Date/Time-TO BE ENTERED AT DEPARTURE: 08/28/24 17:12 Discharge Comment: [place] [facility] [place] [employer] DS: Summary Time Spent with Patient providing and/or coordinating discharge services: Less than 30 minutes Status at Discharge Functional status at discharge: independent ambulation Overall status at discharge: patient is back to baseline Mental Status: mental status grossly normal Speech and Movement: speech and movement normal Mood: congruent mood Affect: normal affect Quality:SDOH Health Related Social Needs: No Data to Display Exam Psych Mental Status: mental status grossly normal Speech and Movement: speech and movement normal Mood: congruent mood Affect: normal affect DS: Data Vitals/I&O Vitals and I&O: Vital Signs Temperature 37.4 C 08/28/24 12:02 Temperature Source Temporal Artery Scan 08/28/24 12:02 Pulse 66 08/28/24 06:01 Pulse 70 08/28/24 06:01 Respiratory Rate 12 08/28/24 06:01 Respiratory Effort Normal, Non-Labored 08/27/24 08:43 Respiratory Depth Normal 08/27/24 08:43 Respiratory Pattern Normal 08/27/24 08:43 Blood Pressure 145/89 H 08/28/24 06:01 Blood Pressure Mean 106 08/28/24 06:01 Blood Pressure Position Supine 08/27/24 08:43 Pulse Oximetry 92 08/28/24 04:01 Oxygen Delivery Method Room Air 08/28/24 12:02 Oxygen Flow Rate 0 08/28/24 12:02 Pain Level 0 08/27/24 18:42 Intake & Output 08/27/24 08/28/24 08/28/24 23:59 11:59 23:59 Intake Total 236.666 / 8598.924 0852.334 / 1303.334 Output Total 1075 / 1575 1500 / 1720 220 / 1720 Balance -838.334 / -338.334 -196.666 / -416.666 -220 / -416.666 Weight 87.4 kg Intake: IV 136.666 / 2627.727 4773.334 / 1103.334 Oral 100 / 100 200 / 200 Output: Urine 1075 / 1575 1500 / 1720 220 / 1720 Other: Urine Color Light Yosi Yellow Yellow Urine Appearance Clear Clear Clear Urine Odor None Normal Normal Comment Patient voided light yosi urine advancing to darker from previously yellow. Patient urine has returned to a straw color from previous light yosi coloration. Data Completed and Pending Labs on day of discharge: Labs from last 24 hours 08/28/24 08/27/24 08/27/24 05:34 19:50 17:05 APTT 65.9 H 67.0 H Troponin I 1311 H* PFSH All Active Problems (Updated 08/29/24 @ 00:03 by DEJA BENNETT) Acute non-ST elevation myocardial infarction (NSTEMI) (Acute) Left arm pain (Acute) Dyspnea on exertion (Acute) Snoring (Acute) Hypertension (Chronic) Pain, joint, foot, right (Acute) Bilateral ankle joint pain (Acute) Ankle joint stiffness, bilateral (Acute) Hyperlipidemia (Acute) GERD without esophagitis (Acute) Rosacea (Acute) Leukemia (Chronic) remote Cecal polyp (Acute) 12/2021 serrated adenoma, due in 2026- Medical History History of leukemia 1967 Hyperlipidemia Esophageal reflux Depressive disorder Anxiety Achilles tendinitis Actinic keratitis BPH w urinary obs/LUTS Elevated blood pressure reading Ankle injury Surgical History History of colonoscopy (~12/2021) Colonoscopy - IV Sedation 2010 2011 Family History Mother Stroke Father , 53 Alcohol abuse Personal history of malignant neoplasm throat Brother , 57 Depression Stroke Hypertension Grandfather Stroke Grandmother Diabetes Son No problems noted. Son No problems noted. Social History (Updated 06/05/24 @ 10:12 by Radha Jackson) Smoking/Tobacco Use Status: Never Second Hand Exposure: Yes Smoking risk assessment performed?: Yes Alcohol Intake: current Alcohol Intake frequency: a few times a week Alcohol type: beer and wine Drug use: Never Substance use type: does not use Adopted: No Caregiver/Support person: Yes Household members: spouse Housing: house Number of Children: 2 number of grandchildren: 1 Communication Needs: None and Corrective Lenses Do you need help understanding health information?: Rarely Pets and animals: Yes Pets and animals: cat(s) Sexually active: Yes Do you think of yourself as: straight/heterosexual Current gender identity: male What is your relationship status?: How often do you talk on the phone with friends or family?: once per week How often do you get together with friends or relatives?: once per week How often do you attend methodist or sabianist services?: 1-3 times per year Do you belong to any clubs or organized social groups?: no Panel score (0-1 are the most socially isolated patients): 1 Valery/Gnosticism: Yarsani Special valery needs: No Agree to transfusion: Yes Seatbelt use: always Helmet use: Yes Helmet use: always 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
--- NOTE | 2024-08-28 13:53 | DSE_ITS ---
Date of service: 08/28/24 Time of Service: 13:54 DS: Diagnosis Discharge Diagnosis (1) Hyperlipidemia: Status: Acute (2) Hypertension: Status: Chronic (3) Acute non-ST elevation myocardial infarction (NSTEMI): Status: Acute Discharge Plan Disposition Patient Disposition: Transfer-Acute Inpatient Care Specific Acute Inpt Facility: [facility] Condition: Stable Discharge Details Reason For Visit: NSTEMI Admit Date/Time: 08/27/24 07:16 Admit Provider: Dontae Walker Attending Provider: Dontae Walker Primary Care Provider: Logan Heard Hospital Course Hospital Course: This is a pending discharge summary. The patient is a 63-year-old gentleman who presented to the ED with chest pain and workup in the ED was indicative of a STEMI patient was put on nitro as well as heparin. Patient was accepted into [facility] but is awaiting a bed. The idea is that he will be sent today for diagnostic and therapeutic cath. Home Meds and New Rx's Prescriptions: New heparin(porcine) in 0.45% NaCl 25,000 unit/250 mL Parenteral Solution 25,000 unit continuous IV infusion INFUSION Qty: 6000 0RF Continued multivitamin Tablet 1 tab PO DAILY glucosamine sulfate 2KCl [Glucosamine Relief] 1,000 mg tablet 1,000 mg PO BID Rx Instructions: administer with meals omega 7-ifn-xnx-fish oil [Fish Oil] 300-1,000 mg capsule 1 cap PO DAILY atorvastatin 20 mg tablet 20 mg PO QHS Qty: 90 4RF nitroglycerin 0.4 mg tablet, sublingual 0.4 mg sublingual Q5M PRN (Reason: chest pain) Qty: 14 0RF Rx Instructions: Take 1 tab at onset of symptoms, repeat every 5 minutes x 3 doses if chest pain persists losartan 25 mg tablet 25 mg PO DAILY Qty: 90 0RF No Action famotidine 20 mg tablet 20 mg PO QHS Qty: 90 4RF Discharge Instructions Activity:: Activity as Tolerated Equipment/Supplies:: No Equipment Needed Diet:: As Tolerated Discharge Orders Discharge Orders: Discharge Order (Routine); Ordered 08/28/24 Ordered By: Dontae Walker DS: Summary Time Spent with Patient providing and/or coordinating discharge services: Less than 30 minutes Status at Discharge Functional status at discharge: independent ambulation Overall status at discharge: patient is back to baseline Mental Status: mental status grossly normal Speech and Movement: speech and movement normal Mood: congruent mood Affect: normal affect Quality:SDOH Health Related Social Needs: No Data to Display Exam Narrative Exam Narrative: HEENT: Normocephalic atraumatic mucous membranes moist oropharynx clear extract motions are intact lungs: Clear to auscultation bilaterally present extremities no accessory muscle use Cardiovascular: Regular rate and rhythm no murmurs gallops Abdomen: Soft nontender nondistended Extremities no sinus clubbing or edema bilaterally Neurologic: Cranial nerves II through XII intact as tested Psych: Alert and oriented x 3 no apparent distress General: 63 gentleman appears his stated age Psych Mental Status: mental status grossly normal Speech and Movement: speech and movement normal Mood: congruent mood Affect: normal affect DS: Data Vitals/I&O Vitals and I&O: Vital Signs Temperature 37.4 C 08/28/24 12:02 Temperature Source Temporal Artery Scan 08/28/24 12:02 Pulse 66 08/28/24 06:01 Pulse 70 08/28/24 06:01 Respiratory Rate 12 08/28/24 06:01 Respiratory Effort Normal, Non-Labored 08/27/24 08:43 Respiratory Depth Normal 08/27/24 08:43 Respiratory Pattern Normal 08/27/24 08:43 Blood Pressure 145/89 H 08/28/24 06:01 Blood Pressure Mean 106 08/28/24 06:01 Blood Pressure Position Supine 08/27/24 08:43 Pulse Oximetry 92 08/28/24 04:01 Oxygen Delivery Method Room Air 08/28/24 12:02 Oxygen Flow Rate 0 08/28/24 12:02 Pain Level 0 08/27/24 18:42 Intake & Output 08/27/24 08/28/24 08/28/24 23:59 11:59 23:59 Intake Total 236.666 / 6541.254 0044.334 / 1303.334 Output Total 1075 / 1575 1500 / 1720 220 / 1720 Balance -838.334 / -338.334 -196.666 / -416.666 -220 / -416.666 Weight 87.4 kg Intake: IV 136.666 / 7565.776 5011.334 / 1103.334 Oral 100 / 100 200 / 200 Output: Urine 1075 / 1575 1500 / 1720 220 / 1720 Other: Urine Color Light Yosi Yellow Yellow Urine Appearance Clear Clear Clear Urine Odor None Normal Normal Comment Patient voided light yosi urine advancing to darker from previously yellow. Patient urine has returned to a straw color from previous light yosi coloration. Data Completed and Pending Labs on day of discharge: Labs from last 24 hours 08/28/24 08/27/24 08/27/24 05:34 19:50 17:05 APTT 65.9 H 67.0 H Troponin I 1311 H* PFSH All Active Problems (Updated 08/27/24 @ 06:57 by Christina Mario MD) Acute non-ST elevation myocardial infarction (NSTEMI) (Acute) Left arm pain (Acute) Dyspnea on exertion (Acute) Snoring (Acute) Hypertension (Chronic) Pain, joint, foot, right (Acute) Bilateral ankle joint pain (Acute) Ankle joint stiffness, bilateral (Acute) Hyperlipidemia (Acute) GERD without esophagitis (Acute) Rosacea (Acute) Leukemia (Chronic) remote Cecal polyp (Acute) 12/2021 serrated adenoma, due in 2026- Medical History History of leukemia 1968 Hyperlipidemia Esophageal reflux Depressive disorder Anxiety Achilles tendinitis Actinic keratitis BPH w urinary obs/LUTS Elevated blood pressure reading Ankle injury Surgical History History of colonoscopy (~12/2021) Colonoscopy - IV Sedation 2010 2011 Family History Mother Stroke Father , 53 Alcohol abuse Personal history of malignant neoplasm throat Brother , 57 Depression Stroke Hypertension Grandfather Stroke Grandmother Diabetes Son No problems noted. Son No problems noted. Social History (Updated 06/05/24 @ 10:12 by Radha Jackson) Smoking/Tobacco Use Status: Never Second Hand Exposure: Yes Smoking risk assessment performed?: Yes Alcohol Intake: current Alcohol Intake frequency: a few times a week Alcohol type: beer and wine Drug use: Never Substance use type: does not use Adopted: No Caregiver/Support person: Yes Household members: spouse Housing: house Number of Children: 2 number of grandchildren: 1 Communication Needs: None and Corrective Lenses Do you need help understanding health information?: Rarely Pets and animals: Yes Pets and animals: cat(s) Sexually active: Yes Do you think of yourself as: straight/heterosexual Current gender identity: male What is your relationship status?: How often do you talk on the phone with friends or family?: once per week How often do you get together with friends or relatives?: once per week How often do you attend congregational or yazidi services?: 1-3 times per year Do you belong to any clubs or organized social groups?: no Panel score (0-1 are the most socially isolated patients): 1 Valery/Episcopal: Hinduism Special valery needs: No Agree to transfusion: Yes Seatbelt use: always Helmet use: Yes Helmet use: always 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
--- NOTE | 2024-08-28 14:10 | W.PM.DS.N ---
Date of service: 08/28/24 Time of Service: 08:18 DS: Diagnosis Discharge Diagnosis (1) Hyperlipidemia: Status: Acute (2) Hypertension: Status: Chronic (3) Acute non-ST elevation myocardial infarction (NSTEMI): Status: Acute Discharge Plan Disposition Patient Disposition: Transfer-Acute Inpatient Care Specific Acute Inpt Facility: [facility] Condition: Stable Discharge Details Reason For Visit: NSTEMI Admit Date/Time: 08/27/24 07:16 Admit Provider: Dontae Walker Attending Provider: Dontae Walker Primary Care Provider: Logan Heard Hospital Course Hospital Course: This is a pending discharge summary. The patient is a 63-year-old gentleman who presented to the ED with chest pain and workup in the ED was indicative of a STEMI patient was put on nitro as well as heparin. Patient was accepted into [facility] but is awaiting a bed. The idea is that he will be sent today for diagnostic and therapeutic cath. Home Meds and New Rx's Prescriptions: New heparin(porcine) in 0.45% NaCl 25,000 unit/250 mL Parenteral Solution 25,000 unit continuous IV infusion INFUSION Qty: 6000 0RF Continued multivitamin Tablet 1 tab PO DAILY glucosamine sulfate 2KCl [Glucosamine Relief] 1,000 mg tablet 1,000 mg PO BID Rx Instructions: administer with meals omega 2-dxy-tmh-fish oil [Fish Oil] 300-1,000 mg capsule 1 cap PO DAILY atorvastatin 20 mg tablet 20 mg PO QHS Qty: 90 4RF nitroglycerin 0.4 mg tablet, sublingual 0.4 mg sublingual Q5M PRN (Reason: chest pain) Qty: 14 0RF Rx Instructions: Take 1 tab at onset of symptoms, repeat every 5 minutes x 3 doses if chest pain persists losartan 25 mg tablet 25 mg PO DAILY Qty: 90 0RF No Action famotidine 20 mg tablet 20 mg PO QHS Qty: 90 4RF Discharge Instructions Activity:: Activity as Tolerated Equipment/Supplies:: No Equipment Needed Diet:: As Tolerated Discharge Orders Discharge Orders: Discharge Order (Routine); Ordered 08/28/24 Ordered By: Dontae Walker Discharge Data Discharge Date/Time-TO BE ENTERED AT DEPARTURE: 08/28/24 17:12 [place] [facility] [place] [employer] DS: Summary Time Spent with Patient providing and/or coordinating discharge services: Less than 30 minutes Status at Discharge Functional status at discharge: independent ambulation Overall status at discharge: patient is back to baseline Mental Status: mental status grossly normal Speech and Movement: speech and movement normal Mood: congruent mood Affect: normal affect Quality:SDOH Health Related Social Needs: No Data to Display Exam Psych Mental Status: mental status grossly normal Speech and Movement: speech and movement normal Mood: congruent mood Affect: normal affect DS: Data Vitals/I&O Vitals and I&O: Vital Signs Temperature 37.4 C 08/28/24 12:02 Temperature Source Temporal Artery Scan 08/28/24 12:02 Pulse 66 08/28/24 06:01 Pulse 70 08/28/24 06:01 Respiratory Rate 12 08/28/24 06:01 Respiratory Effort Normal, Non-Labored 08/27/24 08:43 Respiratory Depth Normal 08/27/24 08:43 Respiratory Pattern Normal 08/27/24 08:43 Blood Pressure 145/89 H 08/28/24 06:01 Blood Pressure Mean 106 08/28/24 06:01 Blood Pressure Position Supine 08/27/24 08:43 Pulse Oximetry 92 08/28/24 04:01 Oxygen Delivery Method Room Air 08/28/24 12:02 Oxygen Flow Rate 0 08/28/24 12:02 Pain Level 0 08/27/24 18:42 Intake & Output 08/27/24 08/28/24 08/28/24 23:59 11:59 23:59 Intake Total 236.666 / 4998.842 0394.334 / 1303.334 Output Total 1075 / 1575 1500 / 1720 220 / 1720 Balance -838.334 / -338.334 -196.666 / -416.666 -220 / -416.666 Weight 87.4 kg Intake: IV 136.666 / 5264.388 0475.334 / 1103.334 Oral 100 / 100 200 / 200 Output: Urine 1075 / 1575 1500 / 1720 220 / 1720 Other: Urine Color Light Yosi Yellow Yellow Urine Appearance Clear Clear Clear Urine Odor None Normal Normal Comment Patient voided light yosi urine advancing to darker from previously yellow. Patient urine has returned to a straw color from previous light yosi coloration. Data Completed and Pending Labs on day of discharge: Labs from last 24 hours 08/28/24 08/27/24 08/27/24 05:34 19:50 17:05 APTT 65.9 H 67.0 H Troponin I 1311 H* PFSH All Active Problems (Updated 08/29/24 @ 00:03 by DEJA BENNETT) Acute non-ST elevation myocardial infarction (NSTEMI) (Acute) Left arm pain (Acute) Dyspnea on exertion (Acute) Snoring (Acute) Hypertension (Chronic) Pain, joint, foot, right (Acute) Bilateral ankle joint pain (Acute) Ankle joint stiffness, bilateral (Acute) Hyperlipidemia (Acute) GERD without esophagitis (Acute) Rosacea (Acute) Leukemia (Chronic) remote Cecal polyp (Acute) 12/2021 serrated adenoma, due in 2026- Medical History History of leukemia 1967 Hyperlipidemia Esophageal reflux Depressive disorder Anxiety Achilles tendinitis Actinic keratitis BPH w urinary obs/LUTS Elevated blood pressure reading Ankle injury Surgical History History of colonoscopy (~12/2021) Colonoscopy - IV Sedation 2010 2011 Family History Mother Stroke Father , 53 Alcohol abuse Personal history of malignant neoplasm throat Brother , 57 Depression Stroke Hypertension Grandfather Stroke Grandmother Diabetes Son No problems noted. Son No problems noted. Social History (Updated 06/05/24 @ 10:12 by Radha Jackson) Smoking/Tobacco Use Status: Never Second Hand Exposure: Yes Smoking risk assessment performed?: Yes Alcohol Intake: current Alcohol Intake frequency: a few times a week Alcohol type: beer and wine Drug use: Never Substance use type: does not use Adopted: No Caregiver/Support person: Yes Household members: spouse Housing: house Number of Children: 2 number of grandchildren: 1 Communication Needs: None and Corrective Lenses Do you need help understanding health information?: Rarely Pets and animals: Yes Pets and animals: cat(s) Sexually active: Yes Do you think of yourself as: straight/heterosexual Current gender identity: male What is your relationship status?: How often do you talk on the phone with friends or family?: once per week How often do you get together with friends or relatives?: once per week How often do you attend anglican or presybeterian services?: 1-3 times per year Do you belong to any clubs or organized social groups?: no Panel score (0-1 are the most socially isolated patients): 1 Valery/Worship: Hinduism Special valery needs: No Agree to transfusion: Yes Seatbelt use: always Helmet use: Yes Helmet use: always Drive 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
[2024-08-28] MEDS: LORazepam 1 MG TAB 2 MG PO (16:57)
== END 2024-08-28 17:12 | disposition short-term general hospital (02) | DRG 282 ==
LOC: ER 06:57 → ICU 15:37
PROVIDERS: General Practice; Admitting Provider Hospitalist; Emergency Provider Student in an Organized Health Care Education/Training Program; PCP Nurse Practitioner Family; Visit Provider Hospitalist
DX: I21.4 Non-ST elevation (NSTEMI) myocardial infarction (principal); I10 Essential (primary) hypertension; E78.5 Hyperlipidemia, unspecified; M79.602 Pain in left arm; R06.83 Snoring; M25.571 Pain in right ankle and joints of right foot; M25.572 Pain in left ankle and joints of left foot; K21.9 Gastro-esophageal reflux disease without esophagitis; Z85.6 Personal history of leukemia; L71.9 Rosacea, unspecified; F32.A Depression, unspecified; N40.1 Benign prostatic hyperplasia with lower urinary tract symptoms; Z79.899 Other long term (current) drug therapy
CPT/HCPCS: 00123; 36415; 71275; 80053; 83690; 93005; 96361; 96365; 96366; 99291; 74174; 83735; 83880; 84484; 85025; 85610; 85730; 93010; 99222; 99239; J1644; J2060; J3490

== ENCOUNTER 2024-09-27 09:08 | Outpatient (RCR) | payer OTHER, SELFPAY | END 2024-09-28 23:59 | disposition home or self-care (01) | LOC: CR 09:08 | PROVIDERS: PCP Nurse Practitioner Family; Visit Provider Internal Medicine Cardiovascular Disease ==

== ENCOUNTER 2024-10-15 11:07 | Outpatient (RCR) | payer OTHER, SELFPAY ==
--- NOTE | 2024-10-15 11:00 | RT.EKG_ITS ---
APPROVED REPORT Exam: Resting ECG Reason for Exam: Baseline Patient Location: O HR:65 bpm ECG Measurements Heart Rate 65 AXIS UT 182 P 39 QRSd 89 QRS 12 QT 420 T 56 QTc 437 Conclusion Sinus rhythm...normal P axis, V-rate 50- 99 Ventricular premature complex...V complex w/ short R-R interval Borderline T wave abnormalities...T/QRS ratio < 1/20 or flat T
== END 2024-10-29 23:59 | disposition home or self-care (01) ==
LOC: CR 11:07
PROVIDERS: PCP Nurse Practitioner Family; Visit Provider Internal Medicine Cardiovascular Disease
DX: I25.10 Atherosclerotic heart disease of native coronary artery without angina pectoris (principal); I25.810 Atherosclerosis of coronary artery bypass graft(s) without angina pectoris; I21.4 Non-ST elevation (NSTEMI) myocardial infarction; Z51.89 Encounter for other specified aftercare
CPT/HCPCS: S9472

== ENCOUNTER 2024-10-16 08:26 | Outpatient (CLI) | payer OTHER, SELFPAY ==
--- NOTE | 2024-10-16 08:15 | RT.EKG_ITS ---
APPROVED REPORT Exam: Resting ECG Reason for Exam: CAD Patient Location: O HR:63 bpm ECG Measurements Heart Rate 63 AXIS NV 201 P -6 QRSd 97 QRS -8 QT 433 T 86 QTc 444 Conclusion Sinus rhythm...normal P axis, V-rate 50- [address]-T abnormalities PVCs
== END 2024-10-16 08:27 | disposition home or self-care (01) ==
LOC: DI.CARD 08:26
PROVIDERS: PCP Nurse Practitioner Family; Visit Provider Internal Medicine Cardiovascular Disease
DX: I21.4 Non-ST elevation (NSTEMI) myocardial infarction (principal); I25.10 Atherosclerotic heart disease of native coronary artery without angina pectoris
CPT/HCPCS: 93010

== ENCOUNTER 2024-10-29 08:08 | Outpatient (RCR) | payer OTHER, SELFPAY | END 2024-10-29 23:59 | disposition home or self-care (01) | LOC: CR 08:08 | PROVIDERS: PCP Nurse Practitioner Family; Visit Provider Internal Medicine Cardiovascular Disease | DX: I25.10 Atherosclerotic heart disease of native coronary artery without angina pectoris (principal); Z51.89 Encounter for other specified aftercare; Z95.1 Presence of aortocoronary bypass graft | CPT/HCPCS: S9472 ==

== ENCOUNTER 2024-11-27 00:28 | Outpatient (CLI) | payer OTHER, SELFPAY ==
[2024-11-27 13:20] LABS: ALT 26 U/L (16-63); AST 19 U/L (15-37); Alkaline Phosphatase 80 U/L (46-116); Anion Gap 10.5 mmol/L (3-11); BUN 20 mg/dL (7-18); CO2 26.5 mmol/L (21.0-32.0); Calcium 9.7 mg/dL (8.5-10.1); Calculated LDL 56 mg/dL (<100); Chloride 106 mmol/L (98-107); Cholesterol 132 mg/dL (<200); Estimated GFR 83.52 (mL/min/1.73m2); Glucose 92 mg/dL (74-106); HDL Cholesterol 50 mg/dL (>or=40); Potassium 4.3 mmol/L (3.5-5.1); Sodium 143 mmol/L (136-145); Total Protein 8.1 g/dL (6.4-8.2); Triglyceride 131 mg/dL (<150)
== END 2024-11-27 00:29 | disposition home or self-care (01) ==
LOC: LOS 00:28
PROVIDERS: PCP Nurse Practitioner Family; Visit Provider Nurse Practitioner Family
DX: E78.5 Hyperlipidemia, unspecified (principal)
CPT/HCPCS: 36415; 80053; 80061

== ENCOUNTER 2024-11-28 08:22 | Outpatient (RCR) | payer OTHER, SELFPAY | END 2024-11-28 23:59 | disposition home or self-care (01) | LOC: CR 08:22 | PROVIDERS: PCP Nurse Practitioner Family; Visit Provider Internal Medicine Cardiovascular Disease | DX: I25.810 Atherosclerosis of coronary artery bypass graft(s) without angina pectoris (principal); Z51.89 Encounter for other specified aftercare; I21.4 Non-ST elevation (NSTEMI) myocardial infarction | CPT/HCPCS: S9472 ==

== ENCOUNTER 2024-12-26 09:17 | Outpatient (RCR) | payer OTHER, SELFPAY | END 2024-12-29 23:59 | disposition home or self-care (01) | LOC: CR 09:17 | PROVIDERS: PCP Nurse Practitioner Family; Visit Provider Internal Medicine Cardiovascular Disease | DX: I21.4 Non-ST elevation (NSTEMI) myocardial infarction (principal); I25.10 Atherosclerotic heart disease of native coronary artery without angina pectoris; Z51.89 Encounter for other specified aftercare | CPT/HCPCS: S9472 ==

== ENCOUNTER 2025-01-11 08:00 | Outpatient (RCR) | payer OTHER, SELFPAY | END 2025-01-28 23:59 | disposition home or self-care (01) | LOC: CR 08:00 | PROVIDERS: PCP Nurse Practitioner Family; Visit Provider Internal Medicine Cardiovascular Disease | DX: I25.10 Atherosclerotic heart disease of native coronary artery without angina pectoris (principal); Z51.89 Encounter for other specified aftercare | CPT/HCPCS: S9472 ==

== ENCOUNTER 2025-02-28 13:00 | Outpatient (RCR) | payer SELFPAY ==
[2025-01-29 13:11] VITALS: BP 118/82; PULSE 79
[2025-01-31 13:00] VITALS: BP 151/79; PULSE 110; O2SAT 95
[2025-02-05 13:44] VITALS: BP 113/81; PULSE 75
[2025-02-07 13:18] VITALS: BP 128/85; PULSE 76
[2025-02-12 13:53] VITALS: BP 123/85; PULSE 88
[2025-02-14 13:05] VITALS: BP 111/75; PULSE 82; O2SAT 97
[2025-02-19 14:11] VITALS: BP 115/75; PULSE 80
[2025-02-21 13:19] VITALS: BP 115/84; PULSE 91
[2025-02-26 14:43] VITALS: BP 111/71; PULSE 81
[2025-02-28 13:15] VITALS: BP 129/86; PULSE 84
== END 2025-02-28 23:59 | disposition home or self-care (01) ==
LOC: CR 13:00
PROVIDERS: PCP Nurse Practitioner Family; Visit Provider Internal Medicine Cardiovascular Disease
DX: R69 Illness, unspecified (principal)

== ENCOUNTER 2025-03-28 13:00 | Outpatient (RCR) | payer SELFPAY ==
[2025-03-01 00:12] VITALS: BP 129/86; PULSE 84
[2025-03-05 13:48] VITALS: BP 129/81; PULSE 83
[2025-03-07 13:45] VITALS: BP 112/81; PULSE 85
[2025-03-12 13:00] VITALS: BP 112/78; PULSE 77
[2025-03-14 13:43] VITALS: BP 117/81; PULSE 75
[2025-03-19 13:21] VITALS: BP 128/81; PULSE 81
[2025-03-21 13:08] VITALS: BP 139/95; PULSE 77
[2025-03-26 13:27] VITALS: BP 117/83; PULSE 76
[2025-03-28 13:29] VITALS: BP 125/85; PULSE 64
== END 2025-03-31 23:59 | disposition home or self-care (01) ==
LOC: CR 13:00
PROVIDERS: PCP Nurse Practitioner Family; Visit Provider Internal Medicine Cardiovascular Disease
DX: R69 Illness, unspecified (principal)

== ENCOUNTER 2025-04-25 13:00 | Outpatient (RCR) | payer SELFPAY ==
[2025-04-02 13:49] VITALS: BP 128/88; PULSE 78
[2025-04-09 13:23] VITALS: BP 108/79; PULSE 80
[2025-04-16 13:19] VITALS: BP 132/92; PULSE 81
[2025-04-18 14:45] VITALS: BP 127/89; PULSE 79
[2025-04-23 14:31] VITALS: BP 119/81; PULSE 78
[2025-04-25 13:18] VITALS: BP 141/83; PULSE 73
== END 2025-04-30 23:59 | disposition home or self-care (01) ==
LOC: CR 13:00
PROVIDERS: PCP Nurse Practitioner Family; Visit Provider Internal Medicine Cardiovascular Disease
DX: R69 Illness, unspecified (principal)

== ENCOUNTER 2025-05-30 07:53 | Outpatient (CLI) | payer MEDICARE, OTHER, SELFPAY ==
--- NOTE | 2025-05-30 07:45 | RT.EKG_ITS ---
APPROVED REPORT Exam: Resting ECG Reason for Exam: CAD Patient Location: O HR:68 bpm ECG Measurements Heart Rate 68 AXIS AK 192 P 69 QRSd 92 QRS 3 QT 425 T 49 QTc 453 Conclusion Sinus rhythm...normal P axis, V-rate 50- 99 Normal Electrocardiogram
== END 2025-05-30 07:54 | disposition home or self-care (01) ==
LOC: DI.CARD 07:54
PROVIDERS: PCP Nurse Practitioner Family; Visit Provider Internal Medicine Cardiovascular Disease
DX: I25.10 Atherosclerotic heart disease of native coronary artery without angina pectoris (principal)
CPT/HCPCS: 93010

== ENCOUNTER → 2025-05-30 10:50 | Outpatient (BNVA) | payer MEDICARE, OTHER, SELFPAY | PROVIDERS: PCP Nurse Practitioner Family; Referring Provider Nurse Practitioner Family; Visit Provider Internal Medicine Cardiovascular Disease | DX: I25.10 Atherosclerotic heart disease of native coronary artery without angina pectoris (principal); Z95.1 Presence of aortocoronary bypass graft | CPT/HCPCS: 99213; 93005 ==

== ENCOUNTER 2025-05-30 13:00 | Outpatient (RCR) | payer SELFPAY ==
[2025-05-01 00:11] VITALS: BP 141/83; PULSE 73
[2025-05-02 13:21] VITALS: BP 132/91; PULSE 82
[2025-05-07 14:06] VITALS: BP 128/87; PULSE 78
[2025-05-14 13:28] VITALS: BP 116/82; PULSE 81
[2025-05-16 13:27] VITALS: BP 127/86; PULSE 78
[2025-05-21 13:11] VITALS: BP 133/89; PULSE 76
[2025-05-24 12:54] VITALS: BP 127/83; PULSE 75
[2025-05-28 13:21] VITALS: BP 119/81; PULSE 83
[2025-05-30 13:09] VITALS: BP 133/83; PULSE 74; O2SAT 97
== END 2025-05-31 23:59 | disposition home or self-care (01) ==
LOC: CR 13:00
PROVIDERS: PCP Nurse Practitioner Family; Visit Provider Internal Medicine Cardiovascular Disease
DX: R69 Illness, unspecified (principal)

== ENCOUNTER 2025-05-31 00:53 | Outpatient (CLI) | payer MEDICARE, OTHER, SELFPAY ==
[2025-05-31 15:16] LABS: ALT 34 U/L (16-63); AST 26 U/L (15-37); Albumin 4.1 g/dL (3.4-5.0); Alkaline Phosphatase 85 U/L (46-116); Anion Gap 9.8 mmol/L (3-11); BUN 16 mg/dL (7-18); Bilirubin, Total 1.8 mg/dL (0.2-1.0); CO2 27.2 mmol/L (21.0-32.0); Calcium 9.1 mg/dL (8.5-10.1); Chloride 102 mmol/L (98-107); Cholesterol 154 mg/dL (<200); Glucose 87 mg/dL (74-106); HDL Cholesterol 51 mg/dL (>or=40); Potassium 4.0 mmol/L (3.5-5.1); Sodium 139 mmol/L (136-145); Total Protein 7.2 g/dL (6.4-8.2)
[2025-06-03 09:52] LABS: HIV-1/2 Ag & Ab Screen Negative (Negative)
[2025-06-03 10:08] LABS: Hepatitis C Ab w Rflx HCV PCR Negative (Negative)
[2025-06-03 10:24] LABS: HBs Antibody, Quant 6.2 mIU/mL (See Note); Hepatitis B Surface Antigen Negative (Negative)
== END 2025-05-31 00:54 | disposition home or self-care (01) ==
LOC: LOS 00:53
PROVIDERS: PCP Nurse Practitioner Family; Visit Provider Nurse Practitioner Family
DX: E78.5 Hyperlipidemia, unspecified (principal); Z11.59 Encounter for screening for other viral diseases; Z11.4 Encounter for screening for human immunodeficiency virus [HIV]
CPT/HCPCS: 36415; 80053; 80061; 86704; 86706; 86803; 87340; 87389

== ENCOUNTER 2025-06-25 13:00 | Outpatient (RCR) | payer SELFPAY ==
[2025-06-01 00:21] VITALS: BP 133/83; PULSE 74
[2025-06-04 13:34] VITALS: BP 134/92; PULSE 82
[2025-06-06 13:13] VITALS: BP 142/88; PULSE 80
[2025-06-11 13:13] VITALS: BP 111/81; PULSE 81
[2025-06-18 13:21] VITALS: BP 120/89; PULSE 83
[2025-06-25 13:19] VITALS: BP 128/86; PULSE 79
== END 2025-06-30 23:59 | disposition home or self-care (01) ==
LOC: CR 13:00
PROVIDERS: PCP Nurse Practitioner Family; Visit Provider Internal Medicine Cardiovascular Disease
DX: R69 Illness, unspecified (principal)

== ENCOUNTER 2025-07-30 13:00 | Outpatient (RCR) | payer SELFPAY ==
[2025-07-01 00:18] VITALS: BP 128/86; PULSE 79
[2025-07-04 13:30] VITALS: BP 124/87; PULSE 67
[2025-07-09 13:22] VITALS: BP 119/83; PULSE 77
[2025-07-11 13:49] VITALS: BP 113/84; PULSE 72
[2025-07-16 13:26] VITALS: BP 122/86; PULSE 78
[2025-07-18 13:50] VITALS: BP 121/85; PULSE 76
[2025-07-30 13:23] VITALS: BP 135/90; PULSE 86
== END 2025-07-31 23:59 | disposition home or self-care (01) ==
LOC: CR 13:00
PROVIDERS: PCP Nurse Practitioner Family; Visit Provider Internal Medicine Cardiovascular Disease
DX: R69 Illness, unspecified (principal)